=== PATIENT | male | born 1940 | race Caucasian/White ===

== ENCOUNTER 2021-04-19 15:36 | Inpatient (IN) | payer MEDICARE ==
[2021-04-19] MEDS ORDERED: Bisacodyl 5 MG TAB PO PRN (16:48)
[2021-04-19] MEDS ORDERED: Ondansetron ODT 4 MG TAB PO PRN (16:48)
[2021-04-19] MEDS ORDERED: Ondansetron PF 4 MG/2 ML Vial IVP PRN (16:48)
[2021-04-19 20:05] VITALS: BMI 29.7
[2021-04-19] MEDS: Famotidine/PF 20 mg/2ml Vial SLOW IVP SCH (20:19)
[2021-04-20 04:47] LABS: #Eosinphils 0.3 10x3/uL (0.0-0.5); #Monocytes 0.6 10x3/uL (0.0-1.1); #Neutrophils 5.9 10x3/uL (1.5-8.4); %Basophils 0.5 % (0.0-2.0); %Eosinophils 3.2 % (0.0-6.0); %Lymphocytes 14.9 % (18.0-47.0); %Monocytes 7.6 % (0.0-10.0); %Neutrophils 73.4 % (40.0-75.0); Hemoglobin 11.4 g/dL (13.5-17.5); Mean Corpuscular Hemoglobin 29.2 pg (27.0-33.0); Mean Corpuscular Volume 91.3 fl (81.2-95.1); Mean Platelet Volume 9.3 fl (7.4-10.4); Platelet Count 186 10x3/uL (150-450); RBC Distribution Width 13.1 % (11.5-14.5); White Blood Cell (WBC) Count 8.1 10x3/uL (3.5-10.5)
[2021-04-20 04:52] LABS: Anion Gap 12 mmol/L (10-20); BUN (Urea Nitrogen) 33 mg/dL (8.4-25.7); Calc. Creatinine Clearance 50 mL/min (70-130); Calcium 8.4 mg/dL (7.8-10.44); Carbon Dioxide 15 mmol/L (23-31); Chloride 116 mmol/L (98-107); Glucose 100 mg/dL (83-110); Sodium 139 mmol/L (136-145)
[2021-04-20] MEDS: Enoxaparin Sodium 30 MG/0.3 ML SYRINGE SC SCH (09:29)
[2021-04-20] MEDS: cefTRIAXone\\ROCEPHIN 2 GM in Sodium Chloride 0.9% 100 ML IVPB SCH (14:12)
[2021-04-20] MEDS ORDERED: Aspirin 325 MG TAB PO SCH (14:30)
[2021-04-20 18:22] LABS: Prothrombin Time 11.5 sec (9.5-12.1)
[2021-04-20] MEDS ORDERED: Warfarin Sodium 5 MG TAB PO SCH (18:45)
[2021-04-20 18:54] LABS: INR-International Normal Ratio 1.1; PTT 30.8 sec (22.0-33.0); Prothrombin Time 11.7 sec (9.5-12.1)
[2021-04-20] MEDS: Famotidine/PF 20 mg/2ml Vial SLOW IVP SCH (19:26)
[2021-04-21 06:37] LABS: #Eosinphils 0.3 10x3/uL (0.0-0.5); #Monocytes 0.5 10x3/uL (0.0-1.1); #Neutrophils 4.7 10x3/uL (1.5-8.4); %Basophils 0.3 % (0.0-2.0); %Eosinophils 4.4 % (0.0-6.0); %Lymphocytes 15.3 % (18.0-47.0); %Monocytes 7.6 % (0.0-10.0); %Neutrophils 71.9 % (40.0-75.0); Hemoglobin 11.6 g/dL (13.5-17.5); Mean Corpuscular HGB CONC 31.2 g/dL (32.0-36.0); Mean Corpuscular Hemoglobin 28.6 pg (27.0-33.0); Mean Corpuscular Volume 91.9 fl (81.2-95.1); Platelet Count 193 10x3/uL (150-450); RBC Distribution Width 13.2 % (11.5-14.5); Red Blood Cell (RBC) Count 4.05 10x6/uL (4.32-5.72); White Blood Cell (WBC) Count 6.6 10x3/uL (3.5-10.5)
[2021-04-21 06:48] LABS: Prothrombin Time 11.4 sec (9.5-12.1)
[2021-04-21 06:51] LABS: Anion Gap 12 mmol/L (10-20); BUN (Urea Nitrogen) 26 mg/dL (8.4-25.7); Calc. Creatinine Clearance 50 mL/min (70-130); Calcium 8.7 mg/dL (7.8-10.44); Carbon Dioxide 19 mmol/L (23-31); Chloride 113 mmol/L (98-107); Glucose 95 mg/dL (83-110); Potassium 3.8 mmol/L (3.5-5.1); Sodium 140 mmol/L (136-145)
[2021-04-21] MEDS ORDERED: Aspirin 325 MG TAB PO SCH (09:00)
[2021-04-21] MEDS: Enoxaparin Sodium 30 MG/0.3 ML SYRINGE SC SCH (09:12)
[2021-04-21 11:09] VITALS: BP 146/83; TEMP 98.5
[2021-04-21] MEDS ORDERED: Sodium Chloride 0.9% 100 ML ONE (12:03)
[2021-04-21] MEDS: cefTRIAXone\\ROCEPHIN 2 GM in Sodium Chloride 0.9% 100 ML IVPB SCH (12:19)
[2021-04-21] MEDS ORDERED: Warfarin Sodium 5 MG TAB PO SCH (17:00)
== END 2021-04-21 14:17 | disposition home health service (06) | DRG 699 ==
LOC: CSHERS 15:36 → CSHTELE 16:47 → OBSVTOIN 16:48 → UNDOADMOB 19:31 → CSHTELE 19:31
PROVIDERS: ADMIT Family Medicine; ATTEND Hospitalist
PROC: 0T2BX0Z Change Drainage Device in Bladder, External Approach (ICD-10-PCS; principal; 2021-04-19)
DX: T83.511A Infection and inflammatory reaction due to indwelling urethral catheter, initial encounter (principal); N30.01 Acute cystitis with hematuria; N18.30 Chronic kidney disease, stage 3 unspecified; I48.0 Paroxysmal atrial fibrillation; I12.9 Hypertensive chronic kidney disease with stage 1 through stage 4 chronic kidney disease, or unspecified chronic kidney disease; Y84.6 Urinary catheterization as the cause of abnormal reaction of the patient, or of later complication, without mention of misadventure at the time of the procedure; D49.4 Neoplasm of unspecified behavior of bladder; Z88.2 Allergy status to sulfonamides; Z88.8 Allergy status to other drugs, medicaments and biological substances; Z88.5 Allergy status to narcotic agent; Z98.890 Other specified postprocedural states; Z87.891 Personal history of nicotine dependence; Z86.718 Personal history of other venous thrombosis and embolism; Z86.711 Personal history of pulmonary embolism; Z79.82 Long term (current) use of aspirin
CPT/HCPCS: 36415; 74176; 80048; 83605; 85025; 85610; 85730; 93005; 93010; J0696; J1650; J3490; S0028

== ENCOUNTER 2021-05-20 15:17 | Inpatient (IN) | payer MEDICARE ==
[2021-05-20] MEDS ORDERED: Ketorolac Tromethamine 30 MG/ML VIAL ONE (15:35)
[2021-05-20] MEDS ORDERED: HYDROmorphone 0.5 MG/0.5 ML SYRINGE ONE (16:25)
[2021-05-20 16:44] LABS: #Monocytes 0.3 10x3/uL (0.0-1.1); %Basophils 0.4 % (0.0-2.0); %Eosinophils 0.2 % (0.0-6.0); %Monocytes 5.1 % (0.0-10.0); %Neutrophils 88.1 % (40.0-75.0); Mean Corpuscular HGB CONC 30.8 g/dL (32.0-36.0); Mean Platelet Volume 8.7 fl (7.4-10.4); Platelet Count 182 10x3/uL (150-450); Red Blood Cell (RBC) Count 4.49 10x6/uL (4.32-5.72); White Blood Cell (WBC) Count 5.7 10x3/uL (3.5-10.5)
[2021-05-20 17:05] LABS: ALT (SGPT) 10 U/L (8-55); AST (SGOT) 14 U/L (5-34); Albumin 3.3 g/dL (3.4-4.8); Alkaline Phosphatase 94 U/L (40-110); Anion Gap 15 mmol/L (10-20); BUN (Urea Nitrogen) 31 mg/dL (8.4-25.7); Bilirubin, Total 0.6 mg/dL (0.2-1.2); Calc. Creatinine Clearance 0 mL/min (70-130); Calcium 8.6 mg/dL (7.8-10.44); Carbon Dioxide 14 mmol/L (23-31); Chloride 109 mmol/L (98-107); Glucose 95 mg/dL (83-110); Lipase 19 U/L (8-78); Potassium 4.2 mmol/L (3.5-5.1); Protein, Total 7.3 g/dL (5.8-8.1); Sodium 134 mmol/L (136-145)
[2021-05-20] MEDS ORDERED: Ondansetron PF 4 MG/2 ML Vial ONE ×2 (17:50→20:21)
[2021-05-20] MEDS ORDERED: cefTRIAXone\\ROCEPHIN 1 GM VIAL ONE (18:06)
[2021-05-20 18:47] LABS: Bilirubin Neg (Negative); Blood, Urine 250 (Negative); Clarity Cloudy (Clear); Glucose, Urine (Dipstick) Normal (Negative); Ketone, Urine Negative (Negative); Leukocyte 500 (Negative); Nitrite Negative (Negative); Protein, Urine (Dipstick) 100 mg/dl (Neg-Trace); Urobilinogen Normal mg/dL (Less than 2)
[2021-05-20 18:50] LABS: Bacteria/HPF 1+ HPF (None Seen); WBC/HPF Greater than 50 HPF (0-3)
[2021-05-20] MEDS ORDERED: PROPOFOL 20 ML ONE (19:05)
[2021-05-20] MEDS ORDERED: Succinylcholine 200 MG/10 ml SYRINGE FS ONE (19:05)
[2021-05-20] MEDS ORDERED: Lidocaine 2% PF 5 ML VIAL ONE (19:05)
[2021-05-20] MEDS ORDERED: Iopamidol 15 ML ONE (19:06)
[2021-05-20] MEDS ORDERED: Fentanyl 100 MCG/2 ML VIAL ONE (19:07)
[2021-05-20 19:19] LABS: Lactic Acid 1.4 mmol/L (0.5-2.2)
[2021-05-20] MEDS ORDERED: Ondansetron ODT 4 MG TAB PO PRN (19:40)
[2021-05-20 19:48] LABS: INR-International Normal Ratio 2.6; PTT 40.9 sec (22.0-33.0); Prothrombin Time 27.4 sec (9.5-12.1)
[2021-05-20] MEDS ORDERED: PHENYLEPHRINE-NS 100 MCG/ML 10 ML SYRINGE ONE ×2 (19:51→20:18)
[2021-05-20 19:57] LABS: SARS-CoV-2 NAA Rapid Test Not Detected (NotDetected)
[2021-05-20 20:10] LABS: Magnesium 1.6 mg/dL (1.6-2.6)
[2021-05-20] MEDS ORDERED: Glycopyrrolate 0.2 MG/ML 5 ML SYRINGE ONE (20:19)
[2021-05-20 21:59] VITALS: BMI 26.4
[2021-05-20] MEDS ORDERED: Vancomycin HCl 1 GM in Sodium Chloride 0.9% 250 ML 250 ML IVPB SCH (22:15)
[2021-05-20] MEDS: Sodium Chloride 0.9% 1,000 ML IV SCH (23:10)
[2021-05-20] MEDS: Trospium 20 MG TAB PO SCH (23:10)
[2021-05-20] MEDS: Docusate 100 MG CAP PO SCH (23:10)
[2021-05-21 05:39] LABS: #Monocytes 0.4 10x3/uL (0.0-1.1); #Neutrophils 8.7 10x3/uL (1.5-8.4); %Basophils 0.3 % (0.0-2.0); %Eosinophils 0.1 % (0.0-6.0); %Lymphocytes 8.7 % (18.0-47.0); %Monocytes 3.9 % (0.0-10.0); %Neutrophils 86.7 % (40.0-75.0); Hemoglobin 10.6 g/dL (13.5-17.5); Mean Corpuscular Hemoglobin 29.1 pg (27.0-33.0); Mean Corpuscular Volume 90.9 fl (81.2-95.1); Platelet Count 187 10x3/uL (150-450); RBC Distribution Width 13.2 % (11.5-14.5); Red Blood Cell (RBC) Count 3.64 10x6/uL (4.32-5.72)
[2021-05-21 05:51] LABS: Anion Gap 13 mmol/L (10-20); BUN (Urea Nitrogen) 34 mg/dL (8.4-25.7); Calc. Creatinine Clearance 31 mL/min (70-130); Carbon Dioxide 16 mmol/L (23-31); Chloride 112 mmol/L (98-107); Glucose 81 mg/dL (83-110); Potassium 4.3 mmol/L (3.5-5.1); Sodium 137 mmol/L (136-145)
[2021-05-21 05:56] LABS: INR-International Normal Ratio 3.2; PTT 45.5 sec (22.0-33.0); Prothrombin Time 33.3 sec (9.5-12.1)
[2021-05-21] MEDS ORDERED: cefTRIAXone\\ROCEPHIN 2 GM in Sodium Chloride 0.9% 100 ML IVPB SCH (08:00)
[2021-05-21] MEDS: Trospium 20 MG TAB PO SCH ×2 (09:28→21:16)
[2021-05-21] MEDS: Docusate 100 MG CAP PO SCH ×2 (09:28→21:16)
[2021-05-21] MEDS ORDERED: Acetaminophen 325 MG TAB PO PRN (11:31)
[2021-05-21] MEDS ORDERED: HYDROmorphone 2 MG TAB PO PRN (11:45)
[2021-05-21] MEDS: Sodium Chloride 0.9% 1,000 ML IV SCH ×3 (14:40→21:31)
[2021-05-21] MEDS ORDERED: Vancomycin 1.5 GRAM/300 ML BAG 1.5 GM in Premix Bag 1 BAG IVPB SCH (21:00)
[2021-05-21] MEDS ORDERED: Vancomycin 1 GM in Premix Bag 1 BAG IVPB SCH (21:00)
[2021-05-21 23:33] LABS: Vancomycin, Random 11.3 ug/mL (See Comment)
[2021-05-21] MEDS ORDERED: Vancomycin HCl 750 MG in Sodium Chloride 0.9% 250 ML 250 ML IVPB SCH (23:59)
[2021-05-22] MEDS: Cefepime 2 GM in Sodium Chloride 0.9% 100 ML IVPB SCH ×3 (00:02→23:18)
[2021-05-22] MEDS: HYDROcodone/Acetaminophen 5/325 mg Tablet PO PRN ×2 (02:19→09:33)
[2021-05-22 05:05] LABS: #Eosinphils 0.2 10x3/uL (0.0-0.5); #Monocytes 0.4 10x3/uL (0.0-1.1); #Neutrophils 9.5 10x3/uL (1.5-8.4); %Basophils 0.3 % (0.0-2.0); %Eosinophils 1.5 % (0.0-6.0); %Lymphocytes 8.3 % (18.0-47.0); %Monocytes 3.8 % (0.0-10.0); %Neutrophils 85.3 % (40.0-75.0); Hemoglobin 10.7 g/dL (13.5-17.5); Mean Corpuscular HGB CONC 32.2 g/dL (32.0-36.0); Mean Corpuscular Hemoglobin 28.8 pg (27.0-33.0); Mean Corpuscular Volume 89.2 fl (81.2-95.1); Mean Platelet Volume 8.8 fl (7.4-10.4); Platelet Count 159 10x3/uL (150-450); RBC Distribution Width 13.2 % (11.5-14.5); Red Blood Cell (RBC) Count 3.72 10x6/uL (4.32-5.72); White Blood Cell (WBC) Count 11.2 10x3/uL (3.5-10.5)
[2021-05-22] MEDS: Sodium Chloride 0.9% 1,000 ML IV SCH ×2 (05:21→18:35)
[2021-05-22 05:29] LABS: ALT (SGPT) 8 U/L (8-55); AST (SGOT) 16 U/L (5-34); Albumin 2.7 g/dL (3.4-4.8); Alkaline Phosphatase 69 U/L (40-110); Anion Gap 11 mmol/L (10-20); BUN (Urea Nitrogen) 30 mg/dL (8.4-25.7); Bilirubin, Total 0.5 mg/dL (0.2-1.2); Calc. Creatinine Clearance 40 mL/min (70-130); Calcium 8.2 mg/dL (7.8-10.44); Carbon Dioxide 19 mmol/L (23-31); Chloride 110 mmol/L (98-107); Globulin 3.4 g/dL (2.4-3.5); Glucose 98 mg/dL (83-110); INR-International Normal Ratio 3.1; Magnesium 1.7 mg/dL (1.6-2.6); Phosphorus 2.5 mg/dL (2.3-4.7); Protein, Total 6.1 g/dL (5.8-8.1); Prothrombin Time 32.4 sec (9.5-12.1); Sodium 136 mmol/L (136-145)
[2021-05-22] MEDS: Ondansetron PF 4 MG/2 ML Vial IVP PRN ×2 (07:13→22:19)
[2021-05-22] MEDS ORDERED: Diltiazem 125 MG in Sodium Chloride 0.9% 100 ML IVPB SCH (08:30)
[2021-05-22] MEDS ORDERED: FLU VACC QS2021-22(65YR UP)/PF 240 MCG/0.7 ML SYRINGE IM ONE (09:00)
[2021-05-22] MEDS ORDERED: Phytonadione 10 MG, Admixture Fee 1 EACH in Sodium Chloride 0.9% 50 ML IVPB SCH (09:30)
[2021-05-22] MEDS: Trospium 20 MG TAB PO SCH ×2 (09:33→20:52)
[2021-05-22] MEDS: Docusate 100 MG CAP PO SCH ×2 (09:33→20:47)
[2021-05-22] MEDS: Pantoprazole 40 MG VIAL IVP SCH ×2 (09:33→20:47)
[2021-05-22 09:43] LABS: Hemoglobin 11.6 g/dL (13.5-17.5)
[2021-05-22 21:00] LABS: INR-International Normal Ratio 1.4; PTT 35.8 sec (22.0-33.0); Prothrombin Time 15.1 sec (9.5-12.1)
[2021-05-22] MEDS ORDERED: Vancomycin HCl 1 GM in Sodium Chloride 0.9% 250 ML 250 ML IVPB SCH (23:00)
[2021-05-23 04:21] LABS: #Eosinphils 0.3 10x3/uL (0.0-0.5); #Monocytes 0.5 10x3/uL (0.0-1.1); #Neutrophils 8.3 10x3/uL (1.5-8.4); %Basophils 0.3 % (0.0-2.0); %Lymphocytes 8.5 % (18.0-47.0); %Monocytes 4.8 % (0.0-10.0); %Neutrophils 82.7 % (40.0-75.0); Hemoglobin 10.5 g/dL (13.5-17.5); Mean Corpuscular HGB CONC 31.3 g/dL (32.0-36.0); Mean Corpuscular Hemoglobin 28.6 pg (27.0-33.0); Mean Corpuscular Volume 91.3 fl (81.2-95.1); Mean Platelet Volume 9.4 fl (7.4-10.4); Platelet Count 193 10x3/uL (150-450); RBC Distribution Width 13.2 % (11.5-14.5); Red Blood Cell (RBC) Count 3.67 10x6/uL (4.32-5.72)
[2021-05-23 04:38] LABS: ALT (SGPT) 10 U/L (8-55); AST (SGOT) 16 U/L (5-34); Albumin 2.7 g/dL (3.4-4.8); Alkaline Phosphatase 73 U/L (40-110); Anion Gap 12 mmol/L (10-20); BUN (Urea Nitrogen) 33 mg/dL (8.4-25.7); Bilirubin, Total 0.7 mg/dL (0.2-1.2); Calc. Creatinine Clearance 44 mL/min (70-130); Calcium 8.6 mg/dL (7.8-10.44); Carbon Dioxide 19 mmol/L (23-31); Cardiac Risk 4.3 (Less than 4.5); Chloride 112 mmol/L (98-107); Cholesterol 77 mg/dl (< 200 Desired); Globulin 3.6 g/dL (2.4-3.5); Glucose 101 mg/dL (83-110); HDL Cholesterol 18 mg/dL (>60 Neg Risk); LDL Cholesterol, Calculated 41 mg/dL; Magnesium 1.9 mg/dL (1.6-2.6); Phosphorus 2.7 mg/dL (2.3-4.7); Potassium 4.2 mmol/L (3.5-5.1); Protein, Total 6.3 g/dL (5.8-8.1); Sodium 139 mmol/L (136-145); Triglycerides 89 mg/dL (Less than 150)
[2021-05-23 04:42] LABS: INR-International Normal Ratio 1.2; PTT 33.6 sec (22.0-33.0); Prothrombin Time 13.4 sec (9.5-12.1)
[2021-05-23] MEDS: Sodium Chloride 0.9% 1,000 ML IV SCH ×3 (06:30→15:39)
[2021-05-23] MEDS: Docusate 100 MG CAP PO SCH ×2 (09:04→20:44)
[2021-05-23] MEDS: Trospium 20 MG TAB PO SCH ×2 (09:04→20:44)
[2021-05-23] MEDS: Pantoprazole 40 MG VIAL IVP SCH ×2 (09:05→20:44)
[2021-05-23 11:36] LABS: Hemoglobin A1c 4.9 % (4.0-6.0)
[2021-05-23] MEDS: Cefepime 2 GM in Sodium Chloride 0.9% 100 ML IVPB SCH (15:39)
[2021-05-23 22:08] LABS: Vancomycin, Trough 10.4 ug/mL
[2021-05-23] MEDS: VANCOMYCIN 1.25 GM/250 ML BAG 1.25 GM in Premix Bag 1 BAG IVPB SCH (23:08)
[2021-05-24] MEDS: Cefepime 2 GM in Sodium Chloride 0.9% 100 ML IVPB SCH (00:54)
[2021-05-24] MEDS: Sodium Chloride 0.9% 1,000 ML IV SCH ×4 (00:54→20:28)
[2021-05-24 05:21] LABS: #Eosinphils 0.5 10x3/uL (0.0-0.5); #Monocytes 0.6 10x3/uL (0.0-1.1); #Neutrophils 7.2 10x3/uL (1.5-8.4); %Basophils 0.4 % (0.0-2.0); %Eosinophils 4.8 % (0.0-6.0); %Lymphocytes 11.3 % (18.0-47.0); %Monocytes 6.7 % (0.0-10.0); %Neutrophils 76.1 % (40.0-75.0); Mean Corpuscular HGB CONC 32.1 g/dL (32.0-36.0); Mean Corpuscular Hemoglobin 28.8 pg (27.0-33.0); Mean Corpuscular Volume 89.8 fl (81.2-95.1); Mean Platelet Volume 9.2 fl (7.4-10.4); Platelet Count 205 10x3/uL (150-450); RBC Distribution Width 13.2 % (11.5-14.5); Red Blood Cell (RBC) Count 3.82 10x6/uL (4.32-5.72); White Blood Cell (WBC) Count 9.4 10x3/uL (3.5-10.5)
[2021-05-24 05:26] LABS: ALT (SGPT) 10 U/L (8-55); AST (SGOT) 15 U/L (5-34); Albumin 2.6 g/dL (3.4-4.8); Alkaline Phosphatase 66 U/L (40-110); Anion Gap 11 mmol/L (10-20); BUN (Urea Nitrogen) 33 mg/dL (8.4-25.7); Bilirubin, Total 0.6 mg/dL (0.2-1.2); Calc. Creatinine Clearance 50 mL/min (70-130); Calcium 8.3 mg/dL (7.8-10.44); Carbon Dioxide 18 mmol/L (23-31); Chloride 116 mmol/L (98-107); Globulin 3.3 g/dL (2.4-3.5); Glucose 93 mg/dL (83-110); Magnesium 1.8 mg/dL (1.6-2.6); Phosphorus 2.3 mg/dL (2.3-4.7); Potassium 3.7 mmol/L (3.5-5.1); Protein, Total 5.9 g/dL (5.8-8.1); Sodium 141 mmol/L (136-145)
[2021-05-24 05:32] LABS: INR-International Normal Ratio 1.1; PTT 30.5 sec (22.0-33.0)
[2021-05-24] MEDS: Docusate 100 MG CAP PO SCH ×2 (08:34→20:14)
[2021-05-24] MEDS: Pantoprazole 40 MG VIAL IVP SCH ×2 (08:34→20:23)
[2021-05-24] MEDS: Trospium 20 MG TAB PO SCH ×2 (09:54→20:23)
[2021-05-24] MEDS: Cefepime 1 GM in Sodium Chloride 0.9% 100 ML IVPB SCH (13:03)
[2021-05-24] MEDS: VANCOMYCIN 1.25 GM/250 ML BAG 1.25 GM in Premix Bag 1 BAG IVPB SCH (23:15)
[2021-05-25] MEDS: Cefepime 1 GM in Sodium Chloride 0.9% 100 ML IVPB SCH ×2 (00:56→11:39)
[2021-05-25 05:37] LABS: INR-International Normal Ratio 1.1; PTT 28.8 sec (22.0-33.0); Prothrombin Time 11.9 sec (9.5-12.1)
[2021-05-25 05:40] LABS: ALT (SGPT) 12 U/L (8-55); AST (SGOT) 15 U/L (5-34); Albumin 2.6 g/dL (3.4-4.8); Alkaline Phosphatase 74 U/L (40-110); Anion Gap 12 mmol/L (10-20); BUN (Urea Nitrogen) 30 mg/dL (8.4-25.7); Bilirubin, Total 0.7 mg/dL (0.2-1.2); Calc. Creatinine Clearance 54 mL/min (70-130); Calcium 8.3 mg/dL (7.8-10.44); Carbon Dioxide 18 mmol/L (23-31); Chloride 113 mmol/L (98-107); Globulin 3.5 g/dL (2.4-3.5); Glucose 76 mg/dL (83-110); Magnesium 1.9 mg/dL (1.6-2.6); Phosphorus 2.2 mg/dL (2.3-4.7); Potassium 3.5 mmol/L (3.5-5.1); Protein, Total 6.1 g/dL (5.8-8.1); Sodium 139 mmol/L (136-145)
[2021-05-25 05:47] LABS: #Eosinphils 0.5 10x3/uL (0.0-0.5); #Monocytes 0.7 10x3/uL (0.0-1.1); #Neutrophils 5.9 10x3/uL (1.5-8.4); %Basophils 0.5 % (0.0-2.0); %Eosinophils 6.1 % (0.0-6.0); %Lymphocytes 14.7 % (18.0-47.0); %Monocytes 8.2 % (0.0-10.0); %Neutrophils 69.9 % (40.0-75.0); Hemoglobin 10.6 g/dL (13.5-17.5); Mean Corpuscular HGB CONC 31.4 g/dL (32.0-36.0); Mean Corpuscular Hemoglobin 28.7 pg (27.0-33.0); Mean Corpuscular Volume 91.6 fl (81.2-95.1); Mean Platelet Volume 9.3 fl (7.4-10.4); Platelet Count 197 10x3/uL (150-450); Red Blood Cell (RBC) Count 3.69 10x6/uL (4.32-5.72); White Blood Cell (WBC) Count 8.4 10x3/uL (3.5-10.5)
[2021-05-25] MEDS ORDERED: Docusate 100 MG CAP ONE (07:01)
[2021-05-25] MEDS: Sodium Chloride 0.9% 1,000 ML IV SCH ×2 (07:13→11:46)
[2021-05-25] MEDS: Pantoprazole 40 MG VIAL IVP SCH ×2 (07:14→21:19)
[2021-05-25] MEDS: Docusate 100 MG CAP PO SCH ×2 (07:17→21:09)
[2021-05-25] MEDS: Trospium 20 MG TAB PO SCH ×2 (07:19→21:18)
[2021-05-25] MEDS ORDERED: Polyvinyl Alcohol 1.4%/Povidone 0.6% Opth Drops EA EYE SCH (11:00)
[2021-05-25] MEDS ORDERED: PROPOFOL 20 ML ONE (13:12)
[2021-05-25] MEDS: Metoclopramide 10 MG/10 ML UDCUP PO SCH ×2 (15:10→21:18)
[2021-05-25] MEDS ORDERED: Warfarin Sodium 5 MG TAB PO SCH (19:00)
[2021-05-25] MEDS: Polyvinyl Alcohol 1.4%/Povidone 0.6% Opth Drops EA EYE SCH (21:19)
[2021-05-25 22:48] LABS: Vancomycin, Trough 18.1 ug/mL
[2021-05-25] MEDS: VANCOMYCIN 1.25 GM/250 ML BAG 1.25 GM in Premix Bag 1 BAG IVPB SCH (23:04)
[2021-05-26] MEDS: Cefepime 1 GM in Sodium Chloride 0.9% 100 ML IVPB SCH ×2 (01:00→11:51)
[2021-05-26 05:53] LABS: INR-International Normal Ratio 1.1; Prothrombin Time 12.6 sec (9.5-12.1)
[2021-05-26 05:57] LABS: #Eosinphils 0.4 10x3/uL (0.0-0.5); #Monocytes 0.6 10x3/uL (0.0-1.1); #Neutrophils 6.4 10x3/uL (1.5-8.4); %Basophils 0.3 % (0.0-2.0); %Eosinophils 4.2 % (0.0-6.0); %Monocytes 7.3 % (0.0-10.0); %Neutrophils 73.3 % (40.0-75.0); Hemoglobin 11.3 g/dL (13.5-17.5); Mean Corpuscular HGB CONC 32.1 g/dL (32.0-36.0); Mean Corpuscular Hemoglobin 29.1 pg (27.0-33.0); Mean Corpuscular Volume 90.7 fl (81.2-95.1); Mean Platelet Volume 9.3 fl (7.4-10.4); Platelet Count 195 10x3/uL (150-450); RBC Distribution Width 13.1 % (11.5-14.5); Red Blood Cell (RBC) Count 3.88 10x6/uL (4.32-5.72); White Blood Cell (WBC) Count 8.7 10x3/uL (3.5-10.5)
[2021-05-26 06:03] LABS: ALT (SGPT) 12 U/L (8-55); AST (SGOT) 16 U/L (5-34); Albumin 2.7 g/dL (3.4-4.8); Alkaline Phosphatase 82 U/L (40-110); Anion Gap 11 mmol/L (10-20); BUN (Urea Nitrogen) 25 mg/dL (8.4-25.7); Bilirubin, Total 0.6 mg/dL (0.2-1.2); Calc. Creatinine Clearance 54 mL/min (70-130); Calcium 8.4 mg/dL (7.8-10.44); Carbon Dioxide 20 mmol/L (23-31); Cardiac Risk 5.3 (Less than 4.5); Chloride 111 mmol/L (98-107); Cholesterol 85 mg/dl (< 200 Desired); Globulin 3.6 g/dL (2.4-3.5); Glucose 80 mg/dL (83-110); HDL Cholesterol 16 mg/dL (>60 Neg Risk); LDL Cholesterol, Calculated 51 mg/dL; Magnesium 1.8 mg/dL (1.6-2.6); Phosphorus 2.4 mg/dL (2.3-4.7); Potassium 3.4 mmol/L (3.5-5.1); Protein, Total 6.3 g/dL (5.8-8.1); Sodium 139 mmol/L (136-145); Triglycerides 90 mg/dL (Less than 150)
[2021-05-26] MEDS: Trospium 20 MG TAB PO SCH ×2 (07:09→20:04)
[2021-05-26] MEDS: Docusate 100 MG CAP PO SCH ×2 (07:09→20:04)
[2021-05-26] MEDS: Pantoprazole 40 MG VIAL IVP SCH ×2 (07:09→20:05)
[2021-05-26] MEDS: Polyvinyl Alcohol 1.4%/Povidone 0.6% Opth Drops EA EYE SCH ×2 (07:10→20:04)
[2021-05-26] MEDS ORDERED: Warfarin Sodium 2.5 MG TAB PO SCH ×2 (17:00→21:00)
[2021-05-26] MEDS: Amino Acids 4.25 %/Dextrose 5% 2,000 ML IV SCH (18:29)
[2021-05-27 05:42] LABS: ALT (SGPT) 12 U/L (8-55); AST (SGOT) 14 U/L (5-34); Albumin 2.7 g/dL (3.4-4.8); Alkaline Phosphatase 77 U/L (40-110); Anion Gap 11 mmol/L (10-20); BUN (Urea Nitrogen) 22 mg/dL (8.4-25.7); Bilirubin, Total 0.5 mg/dL (0.2-1.2); Calc. Creatinine Clearance 61 mL/min (70-130); Calcium 8.2 mg/dL (7.8-10.44); Carbon Dioxide 17 mmol/L (23-31); Chloride 108 mmol/L (98-107); Globulin 3.5 g/dL (2.4-3.5); Glucose 106 mg/dL (83-110); Magnesium 1.8 mg/dL (1.6-2.6); Protein, Total 6.2 g/dL (5.8-8.1); Sodium 133 mmol/L (136-145)
[2021-05-27 05:45] LABS: INR-International Normal Ratio 1.3; PTT 32.2 sec (22.0-33.0); Potassium 2.8 mmol/L (3.5-5.1); Prothrombin Time 14.1 sec (9.5-12.1)
[2021-05-27 05:51] LABS: #Eosinphils 0.4 10x3/uL (0.0-0.5); #Monocytes 0.7 10x3/uL (0.0-1.1); #Neutrophils 6.3 10x3/uL (1.5-8.4); %Basophils 0.3 % (0.0-2.0); %Eosinophils 4.7 % (0.0-6.0); %Lymphocytes 13.5 % (18.0-47.0); %Monocytes 7.8 % (0.0-10.0); %Neutrophils 72.1 % (40.0-75.0); Hemoglobin 11.2 g/dL (13.5-17.5); Mean Corpuscular HGB CONC 32.6 g/dL (32.0-36.0); Mean Corpuscular Hemoglobin 29.2 pg (27.0-33.0); Mean Corpuscular Volume 89.6 fl (81.2-95.1); Platelet Count 190 10x3/uL (150-450); RBC Distribution Width 13.1 % (11.5-14.5); Red Blood Cell (RBC) Count 3.84 10x6/uL (4.32-5.72); White Blood Cell (WBC) Count 8.7 10x3/uL (3.5-10.5)
[2021-05-27] MEDS ORDERED: Potassium Chloride 20 MEQ TAB PO SCH (08:00)
[2021-05-27] MEDS ORDERED: Amino Acids 4.25 %/Dextrose 5% 2,000 ML BAG IV SCH (09:00)
[2021-05-27] MEDS: Pantoprazole 40 MG VIAL IVP SCH ×2 (09:13→21:10)
[2021-05-27] MEDS: Docusate 100 MG CAP PO SCH ×2 (09:13→21:10)
[2021-05-27] MEDS: Polyvinyl Alcohol 1.4%/Povidone 0.6% Opth Drops EA EYE SCH ×2 (09:25→21:11)
[2021-05-27] MEDS: Trospium 20 MG TAB PO SCH ×2 (09:26→21:11)
[2021-05-27] MEDS ORDERED: Electrolyte Replacement Protocol 1 EACH FS SCH (11:00)
[2021-05-27] MEDS ORDERED: Potassium Chloride 40 MEQ in Premix Bag 1 BAG IVPB SCH (12:00)
[2021-05-27] MEDS ORDERED: Magnesium 2 GM/50 ML 2 GM in Premix Bag 1 BAG IVPB SCH (13:00)
[2021-05-27] MEDS: PHOS-NAK 1 PKT PACK PO SCH ×2 (14:11→18:37)
[2021-05-27] MEDS: Potassium Chloride 20 MEQ in Premix Bag 1 BAG IVPB SCH ×2 (14:59→17:21)
[2021-05-27] MEDS: Warfarin Sodium 5 MG TAB PO SCH (17:22)
[2021-05-27] MEDS: Amino Acids 4.25 %/Dextrose 5% 2,000 ML IV SCH (18:34)
[2021-05-27] MEDS ORDERED: PHOS-NAK 1 PKT PACK PO SCH (18:45)
[2021-05-28] MEDS: Ondansetron PF 4 MG/2 ML Vial IVP PRN (04:42)
[2021-05-28 05:21] LABS: #Eosinphils 0.4 10x3/uL (0.0-0.5); #Monocytes 0.6 10x3/uL (0.0-1.1); #Neutrophils 6.8 10x3/uL (1.5-8.4); %Basophils 0.3 % (0.0-2.0); %Eosinophils 4.6 % (0.0-6.0); %Lymphocytes 13.5 % (18.0-47.0); %Monocytes 6.9 % (0.0-10.0); %Neutrophils 73.5 % (40.0-75.0); Mean Corpuscular HGB CONC 32.9 g/dL (32.0-36.0); Mean Corpuscular Hemoglobin 29.2 pg (27.0-33.0); Mean Corpuscular Volume 88.6 fl (81.2-95.1); Mean Platelet Volume 8.5 fl (7.4-10.4); Platelet Count 162 10x3/uL (150-450); RBC Distribution Width 13.4 % (11.5-14.5); Red Blood Cell (RBC) Count 3.77 10x6/uL (4.32-5.72); White Blood Cell (WBC) Count 9.3 10x3/uL (3.5-10.5)
[2021-05-28 05:32] LABS: INR-International Normal Ratio 1.5; PTT 35.2 sec (22.0-33.0); Prothrombin Time 16.3 sec (9.5-12.1)
[2021-05-28 05:34] LABS: ALT (SGPT) 12 U/L (8-55); AST (SGOT) 11 U/L (5-34); Albumin 2.7 g/dL (3.4-4.8); Alkaline Phosphatase 77 U/L (40-110); Anion Gap 7 mmol/L (10-20); BUN (Urea Nitrogen) 22 mg/dL (8.4-25.7); Bilirubin, Total 0.4 mg/dL (0.2-1.2); Calc. Creatinine Clearance 63 mL/min (70-130); Carbon Dioxide 20 mmol/L (23-31); Chloride 108 mmol/L (98-107); Globulin 3.5 g/dL (2.4-3.5); Glucose 107 mg/dL (83-110); Protein, Total 6.2 g/dL (5.8-8.1); Sodium 132 mmol/L (136-145)
[2021-05-28 05:44] LABS: Phosphorus 1.8 mg/dL (2.3-4.7); Potassium 2.8 mmol/L (3.5-5.1)
[2021-05-28] MEDS ORDERED: Potassium Chloride 20 MEQ TAB PO SCH (06:00)
[2021-05-28] MEDS ORDERED: Magnesium 2 GM/50 ML 2 GM in Premix Bag 1 BAG IVPB SCH (06:00)
[2021-05-28] MEDS ORDERED: PHOS-NAK 1 PKT PACK PO SCH (06:00)
[2021-05-28] MEDS: Docusate 100 MG CAP PO SCH (07:42)
[2021-05-28] MEDS: Pantoprazole 40 MG VIAL IVP SCH ×2 (09:03→20:23)
[2021-05-28] MEDS ORDERED: Metoclopramide HCl 10 MG/2 ML VIAL IVP SCH (10:00)
[2021-05-28] MEDS ORDERED: Potassium Chloride 20 MEQ in Premix Bag 1 BAG IVPB SCH (10:00)
[2021-05-28] MEDS: Trospium 20 MG TAB PO SCH ×2 (10:01→20:36)
[2021-05-28] MEDS: Polyvinyl Alcohol 1.4%/Povidone 0.6% Opth Drops EA EYE SCH ×2 (10:01→20:28)
[2021-05-28] MEDS ORDERED: Potassium Phosphate 15 MMOL in Sodium Chloride 0.9% 250 ML 250 ML IVPB SCH (12:00)
[2021-05-28 12:34] LABS: Anion Gap 10 mmol/L (10-20); BUN (Urea Nitrogen) 24 mg/dL (8.4-25.7); Calc. Creatinine Clearance 61 mL/min (70-130); Calcium 8.1 mg/dL (7.8-10.44); Carbon Dioxide 17 mmol/L (23-31); Chloride 109 mmol/L (98-107); Glucose 83 mg/dL (83-110); Potassium 3.9 mmol/L (3.5-5.1); Sodium 132 mmol/L (136-145)
[2021-05-28 14:14] LABS: SARS-CoV-2 PCR by NAA Not Detected (NotDetected)
[2021-05-28] MEDS ORDERED: Baclofen 10 MG TAB PO SCH (18:00)
[2021-05-28] MEDS: Amino Acids 4.25 %/Dextrose 5% 2,000 ML IV SCH (18:03)
[2021-05-28] MEDS: Warfarin Sodium 5 MG TAB PO SCH (18:03)
[2021-05-28] MEDS: Metoclopramide HCl 10 MG/2 ML VIAL IVP SCH (20:21)
[2021-05-29 05:18] LABS: INR-International Normal Ratio 1.8; PTT 38.6 sec (22.0-33.0); Prothrombin Time 19.7 sec (9.5-12.1)
[2021-05-29 05:38] LABS: Phosphorus 2.2 mg/dL (2.3-4.7)
[2021-05-29] MEDS ORDERED: Magnesium 2 GM/50 ML 2 GM in Premix Bag 1 BAG IVPB SCH (06:15)
[2021-05-29] MEDS: Baclofen 10 MG TAB PO SCH ×3 (08:13→19:57)
[2021-05-29] MEDS: Pantoprazole 40 MG VIAL IVP SCH ×2 (08:13→19:58)
[2021-05-29] MEDS: Metoclopramide HCl 10 MG/2 ML VIAL IVP SCH ×2 (08:14→19:57)
[2021-05-29] MEDS: Polyvinyl Alcohol 1.4%/Povidone 0.6% Opth Drops EA EYE SCH ×2 (08:14→19:58)
[2021-05-29] MEDS: Trospium 20 MG TAB PO SCH ×2 (08:14→19:58)
[2021-05-29 12:06] LABS: ALT (SGPT) 15 U/L (8-55); AST (SGOT) 22 U/L (5-34); Albumin 2.7 g/dL (3.4-4.8); Alkaline Phosphatase 81 U/L (40-110); Anion Gap 11 mmol/L (10-20); BUN (Urea Nitrogen) 28 mg/dL (8.4-25.7); Bilirubin, Total 0.4 mg/dL (0.2-1.2); Calc. Creatinine Clearance 56 mL/min (70-130); Carbon Dioxide 18 mmol/L (23-31); Chloride 108 mmol/L (98-107); Globulin 3.6 g/dL (2.4-3.5); Glucose 98 mg/dL (83-110); Potassium 3.5 mmol/L (3.5-5.1); Protein, Total 6.3 g/dL (5.8-8.1); Sodium 133 mmol/L (136-145)
[2021-05-29] MEDS ORDERED: Potassium Chloride 20 MEQ TAB PO SCH (13:00)
[2021-05-29] MEDS: Warfarin Sodium 5 MG TAB PO SCH (17:32)
[2021-05-29] MEDS: Amino Acids 4.25 %/Dextrose 5% 2,000 ML IV SCH (18:19)
[2021-05-30] MEDS: Ondansetron PF 4 MG/2 ML Vial IVP PRN ×2 (03:30→21:43)
[2021-05-30 05:23] LABS: ALT (SGPT) 16 U/L (8-55); AST (SGOT) 20 U/L (5-34); Albumin 2.8 g/dL (3.4-4.8); Alkaline Phosphatase 88 U/L (40-110); Anion Gap 10 mmol/L (10-20); BUN (Urea Nitrogen) 26 mg/dL (8.4-25.7); Bilirubin, Total 0.3 mg/dL (0.2-1.2); Calc. Creatinine Clearance 58 mL/min (70-130); Calcium 8.2 mg/dL (7.8-10.44); Carbon Dioxide 20 mmol/L (23-31); Chloride 108 mmol/L (98-107); Globulin 3.7 g/dL (2.4-3.5); Glucose 115 mg/dL (83-110); Potassium 3.8 mmol/L (3.5-5.1); Protein, Total 6.5 g/dL (5.8-8.1); Sodium 134 mmol/L (136-145)
[2021-05-30 05:29] LABS: INR-International Normal Ratio 2.1; PTT 40.7 sec (22.0-33.0); Prothrombin Time 22.9 sec (9.5-12.1)
[2021-05-30] MEDS: Trospium 20 MG TAB PO SCH ×2 (08:56→20:00)
[2021-05-30] MEDS: Polyvinyl Alcohol 1.4%/Povidone 0.6% Opth Drops EA EYE SCH ×2 (08:56→20:02)
[2021-05-30] MEDS: Pantoprazole 40 MG VIAL IVP SCH ×2 (08:56→20:00)
[2021-05-30] MEDS: Metoclopramide HCl 10 MG/2 ML VIAL IVP SCH ×2 (08:56→20:01)
[2021-05-30] MEDS: Baclofen 10 MG TAB PO SCH ×3 (08:57→20:00)
[2021-05-30] MEDS ORDERED: Warfarin Sodium 2.5 MG TAB PO SCH (17:00)
[2021-05-31 04:53] LABS: #Eosinphils 0.3 10x3/uL (0.0-0.5); #Monocytes 0.8 10x3/uL (0.0-1.1); #Neutrophils 11.2 10x3/uL (1.5-8.4); %Basophils 0.3 % (0.0-2.0); %Eosinophils 1.9 % (0.0-6.0); %Lymphocytes 7.9 % (18.0-47.0); %Monocytes 6.1 % (0.0-10.0); %Neutrophils 83.1 % (40.0-75.0); Hemoglobin 11.1 g/dL (13.5-17.5); Mean Corpuscular Hemoglobin 28.8 pg (27.0-33.0); Mean Corpuscular Volume 89.9 fl (81.2-95.1); Mean Platelet Volume 9.1 fl (7.4-10.4); Platelet Count 291 10x3/uL (150-450); RBC Distribution Width 13.6 % (11.5-14.5); Red Blood Cell (RBC) Count 3.86 10x6/uL (4.32-5.72); White Blood Cell (WBC) Count 13.5 10x3/uL (3.5-10.5)
[2021-05-31 05:01] LABS: INR-International Normal Ratio 2.4; Prothrombin Time 25.1 sec (9.5-12.1)
[2021-05-31 05:08] LABS: ALT (SGPT) 23 U/L (8-55); AST (SGOT) 29 U/L (5-34); Albumin 2.9 g/dL (3.4-4.8); Alkaline Phosphatase 100 U/L (40-110); Anion Gap 12 mmol/L (10-20); BUN (Urea Nitrogen) 31 mg/dL (8.4-25.7); Bilirubin, Total 0.4 mg/dL (0.2-1.2); Calc. Creatinine Clearance 48 mL/min (70-130); Calcium 8.5 mg/dL (7.8-10.44); Carbon Dioxide 20 mmol/L (23-31); Chloride 106 mmol/L (98-107); Globulin 3.9 g/dL (2.4-3.5); Glucose 115 mg/dL (83-110); Protein, Total 6.8 g/dL (5.8-8.1); Sodium 134 mmol/L (136-145)
[2021-05-31 08:11] LABS: #Basophils 0.1 10x3/uL (0.0-0.2); #Eosinphils 0.3 10x3/uL (0.0-0.5); #Monocytes 0.9 10x3/uL (0.0-1.1); #Neutrophils 12.5 10x3/uL (1.5-8.4); %Basophils 0.3 % (0.0-2.0); %Eosinophils 1.8 % (0.0-6.0); %Lymphocytes 7.9 % (18.0-47.0); %Neutrophils 83.3 % (40.0-75.0); Hemoglobin 11.3 g/dL (13.5-17.5); Mean Corpuscular HGB CONC 32.3 g/dL (32.0-36.0); Mean Corpuscular Hemoglobin 28.8 pg (27.0-33.0); Mean Corpuscular Volume 89.1 fl (81.2-95.1); Mean Platelet Volume 8.9 fl (7.4-10.4); Platelet Count 280 10x3/uL (150-450); RBC Distribution Width 13.4 % (11.5-14.5); Red Blood Cell (RBC) Count 3.93 10x6/uL (4.32-5.72)
[2021-05-31] MEDS: Trospium 20 MG TAB PO SCH ×2 (10:42→22:54)
[2021-05-31] MEDS: Metoclopramide HCl 10 MG/2 ML VIAL IVP SCH ×3 (10:42→22:54)
[2021-05-31] MEDS: Pantoprazole 40 MG VIAL IVP SCH ×2 (10:43→22:52)
[2021-05-31] MEDS: Baclofen 10 MG TAB PO SCH ×3 (10:43→22:57)
[2021-05-31] MEDS: Polyvinyl Alcohol 1.4%/Povidone 0.6% Opth Drops EA EYE SCH ×2 (10:43→22:56)
[2021-05-31] MEDS: Dextrose 5%-Lactated Ringers 1,000 ML IV SCH ×2 (15:05→22:57)
[2021-05-31] MEDS: Warfarin Sodium 5 MG TAB PO SCH (17:12)
[2021-05-31] MEDS ORDERED: Piperacillin/Tazobactam 3.375 GM in Sodium Chloride 0.9% 100 ML IVPB SCH (17:30)
[2021-05-31] MEDS ORDERED: Diltiazem 125 MG in Sodium Chloride 0.9% 100 ML IVPB SCH (17:45)
[2021-05-31] MEDS: VANCOMYCIN 1.25 GM/250 ML BAG 1.25 GM in Premix Bag 1 BAG IVPB SCH (18:36)
[2021-05-31] MEDS ORDERED: Amino Acids 4.25 %/Dextrose 5% 1,000 ML IV SCH (20:00)
[2021-05-31] MEDS: Amino Acids 4.25 %/Dextrose 5% 1,000 ML IV SCH (22:51)
[2021-05-31] MEDS: Piperacillin/Tazobactam 3.375 GM in Sodium Chloride 0.9% 100 ML IVPB SCH (22:53)
[2021-05-31] MEDS: Ciprofloxacin 0.3 % Oint 3.5 GM TUBE EA EYE SCH (22:56)
[2021-05-31 23:15] LABS: #Basophils 0.1 10x3/uL (0.0-0.2); #Eosinphils 0.2 10x3/uL (0.0-0.5); #Neutrophils 10.1 10x3/uL (1.5-8.4); %Basophils 0.5 % (0.0-2.0); %Eosinophils 1.5 % (0.0-6.0); %Monocytes 7.9 % (0.0-10.0); %Neutrophils 80.3 % (40.0-75.0); Hemoglobin 11.4 g/dL (13.5-17.5); Mean Corpuscular Hemoglobin 28.9 pg (27.0-33.0); Mean Corpuscular Volume 90.4 fl (81.2-95.1); Mean Platelet Volume 8.8 fl (7.4-10.4); Platelet Count 318 10x3/uL (150-450); RBC Distribution Width 13.5 % (11.5-14.5); Red Blood Cell (RBC) Count 3.94 10x6/uL (4.32-5.72); White Blood Cell (WBC) Count 12.5 10x3/uL (3.5-10.5)
[2021-06-01] MEDS: Heparin 10,000 UNITS/ 10 ML VIAL SLOW IVP SCH ×2 (00:24→09:55)
[2021-06-01 01:08] LABS: Actual Bicarbonate (HCO3a) 18.6 mEq/L (22-28); Base Excess (BEa) -5.6 mEq/L (-2.0 to +3.0); CO2 Tension 32.1 mmHg (35.0-45.0); Calcium, Ionized (arterial) 1.25 mmol/L (1.12-1.30); Carboxyhemoglobin (COHb) 0.3 gm% (0.0-3.0); Hemoglobin (Hb) 11.1 g/dL (14.0-18.0); Potassium - ABG Lab 3.5 mmol/L (3.70-5.30); Puncture Site RRA; pH, Arterial 7.38 (7.35-7.45)
[2021-06-01 01:11] LABS: ALV-art Gradient 29.605 mmHg (0-20)
[2021-06-01] MEDS: Heparin 25,000 units/D5W 500 ML IVPB SCH (01:32)
[2021-06-01] MEDS: Metoclopramide HCl 10 MG/2 ML VIAL IVP SCH ×4 (03:43→23:54)
[2021-06-01 04:45] LABS: ALT (SGPT) 87 U/L (8-55); AST (SGOT) 117 U/L (5-34); Alkaline Phosphatase 136 U/L (40-110); Anion Gap 13 mmol/L (10-20); BUN (Urea Nitrogen) 46 mg/dL (8.4-25.7); Bilirubin, Total 0.4 mg/dL (0.2-1.2); Calc. Creatinine Clearance 36 mL/min (70-130); Calcium 8.9 mg/dL (7.8-10.44); Carbon Dioxide 18 mmol/L (23-31); Chloride 118 mmol/L (98-107); Globulin 3.9 g/dL (2.4-3.5); Glucose 168 mg/dL (83-110); Potassium 3.7 mmol/L (3.5-5.1); Protein, Total 6.9 g/dL (5.8-8.1); Sodium 145 mmol/L (136-145)
[2021-06-01] MEDS: Dextrose 5%-Lactated Ringers 1,000 ML IV SCH (05:13)
[2021-06-01] MEDS: Piperacillin/Tazobactam 3.375 GM in Sodium Chloride 0.9% 100 ML IVPB SCH ×3 (05:16→21:31)
[2021-06-01] MEDS ORDERED: Lactated Ringer's 500 ML IV SCH (07:45)
[2021-06-01] MEDS ORDERED: Amino Acids 4.25 %/Dextrose 5% 2,000 ML BAG IV SCH (09:00)
[2021-06-01] MEDS: Lactated Ringer's 1,000 ML IV SCH ×3 (09:24→20:14)
[2021-06-01] MEDS: Ciprofloxacin 0.3 % Oint 3.5 GM TUBE EA EYE SCH ×2 (09:42→21:32)
[2021-06-01] MEDS: Pantoprazole 40 MG VIAL IVP SCH ×2 (09:44→21:32)
[2021-06-01] MEDS: Polyvinyl Alcohol 1.4%/Povidone 0.6% Opth Drops EA EYE SCH ×2 (09:45→21:37)
[2021-06-01] MEDS: Trospium 20 MG TAB PO SCH ×2 (10:47→20:15)
[2021-06-01] MEDS: Baclofen 10 MG TAB PO SCH (12:36)
[2021-06-01 16:34] LABS: PTT Greater than 139.0 sec (22.0-33.0)
[2021-06-01] MEDS: VANCOMYCIN 1.25 GM/250 ML BAG 1.25 GM in Premix Bag 1 BAG IVPB SCH (17:27)
[2021-06-01] MEDS: Amino Acids 4.25 %/Dextrose 5% 1,000 ML IV SCH (17:32)
[2021-06-02 02:37] LABS: #Basophils 0.1 10x3/uL (0.0-0.2); #Eosinphils 0.4 10x3/uL (0.0-0.5); #Monocytes 0.7 10x3/uL (0.0-1.1); #Neutrophils 5.8 10x3/uL (1.5-8.4); %Basophils 0.8 % (0.0-2.0); %Eosinophils 4.7 % (0.0-6.0); %Lymphocytes 10.7 % (18.0-47.0); %Monocytes 8.6 % (0.0-10.0); %Neutrophils 74.3 % (40.0-75.0); Hemoglobin 9.6 g/dL (13.5-17.5); Mean Corpuscular HGB CONC 29.9 g/dL (32.0-36.0); Mean Corpuscular Hemoglobin 28.5 pg (27.0-33.0); Mean Corpuscular Volume 95.3 fl (81.2-95.1); Mean Platelet Volume 9.1 fl (7.4-10.4); Platelet Count 254 10x3/uL (150-450); RBC Distribution Width 14.1 % (11.5-14.5); Red Blood Cell (RBC) Count 3.37 10x6/uL (4.32-5.72); White Blood Cell (WBC) Count 7.8 10x3/uL (3.5-10.5)
[2021-06-02] MEDS: Metoclopramide HCl 10 MG/2 ML VIAL IVP SCH ×4 (03:01→21:38)
[2021-06-02] MEDS: Lactated Ringer's 1,000 ML IV SCH ×3 (03:01→16:25)
[2021-06-02 03:05] LABS: Platelet Morphology Comment Appears Adequate; RBC Morphology Normal
[2021-06-02 03:38] LABS: ALT (SGPT) 52 U/L (8-55); AST (SGOT) 41 U/L (5-34); Albumin 2.6 g/dL (3.4-4.8); Alkaline Phosphatase 103 U/L (40-110); Anion Gap 10 mmol/L (10-20); BUN (Urea Nitrogen) 36 mg/dL (8.4-25.7); Bilirubin, Total 0.2 mg/dL (0.2-1.2); Calc. Creatinine Clearance 45 mL/min (70-130); Calcium 8.5 mg/dL (7.8-10.44); Carbon Dioxide 20 mmol/L (23-31); Chloride 119 mmol/L (98-107); Globulin 3.4 g/dL (2.4-3.5); Glucose 111 mg/dL (83-110); Sodium 146 mmol/L (136-145)
[2021-06-02 04:38] LABS: PTT 84.2 sec (22.0-33.0)
[2021-06-02] MEDS: Heparin 25,000 units/D5W 500 ML IVPB SCH (04:52)
[2021-06-02] MEDS: Piperacillin/Tazobactam 3.375 GM in Sodium Chloride 0.9% 100 ML IVPB SCH ×3 (04:52→21:39)
[2021-06-02] MEDS: Potassium Chloride 20 MEQ in Premix Bag 1 BAG IVPB SCH ×2 (05:31→09:08)
[2021-06-02] MEDS ORDERED: Potassium Chloride 20 MEQ TAB PO SCH (08:00)
[2021-06-02] MEDS: Pantoprazole 40 MG VIAL IVP SCH ×2 (09:09→21:38)
[2021-06-02] MEDS: Ciprofloxacin 0.3 % Oint 3.5 GM TUBE EA EYE SCH ×2 (09:15→21:37)
[2021-06-02] MEDS: Polyvinyl Alcohol 1.4%/Povidone 0.6% Opth Drops EA EYE SCH ×2 (09:17→21:38)
[2021-06-02] MEDS: Trospium 20 MG TAB PO SCH ×2 (09:58→21:39)
[2021-06-02 11:42] LABS: Potassium 3.7 mmol/L (3.5-5.1)
[2021-06-02 11:52] LABS: PTT 95.6 sec (22.0-33.0)
[2021-06-02] MEDS: Amino Acids 4.25 %/Dextrose 5% 1,000 ML IV SCH (13:15)
[2021-06-03] MEDS: Lactated Ringer's 1,000 ML IV SCH ×3 (00:02→18:11)
[2021-06-03 03:47] LABS: #Eosinphils 0.3 10x3/uL (0.0-0.5); #Monocytes 0.5 10x3/uL (0.0-1.1); #Neutrophils 3.6 10x3/uL (1.5-8.4); %Basophils 0.5 % (0.0-2.0); %Eosinophils 4.9 % (0.0-6.0); %Lymphocytes 19.5 % (18.0-47.0); %Monocytes 8.2 % (0.0-10.0); %Neutrophils 66.4 % (40.0-75.0); Hemoglobin 8.9 g/dL (13.5-17.5); Mean Corpuscular HGB CONC 31.6 g/dL (32.0-36.0); Mean Corpuscular Hemoglobin 28.7 pg (27.0-33.0); Mean Platelet Volume 8.7 fl (7.4-10.4); Platelet Count 256 10x3/uL (150-450); RBC Distribution Width 13.8 % (11.5-14.5); White Blood Cell (WBC) Count 5.5 10x3/uL (3.5-10.5)
[2021-06-03 04:02] LABS: ALT (SGPT) 34 U/L (8-55); AST (SGOT) 27 U/L (5-34); Albumin 2.4 g/dL (3.4-4.8); Alkaline Phosphatase 89 U/L (40-110); Anion Gap 10 mmol/L (10-20); BUN (Urea Nitrogen) 23 mg/dL (8.4-25.7); Bilirubin, Total 0.2 mg/dL (0.2-1.2); Calc. Creatinine Clearance 59 mL/min (70-130); Calcium 8.1 mg/dL (7.8-10.44); Carbon Dioxide 19 mmol/L (23-31); Chloride 112 mmol/L (98-107); Globulin 3.2 g/dL (2.4-3.5); Glucose 101 mg/dL (83-110); Protein, Total 5.6 g/dL (5.8-8.1); Sodium 138 mmol/L (136-145)
[2021-06-03 04:05] LABS: Potassium 2.9 mmol/L (3.5-5.1)
[2021-06-03 04:43] LABS: PTT Greater than 139.0 sec (22.0-33.0)
[2021-06-03] MEDS: Metoclopramide HCl 10 MG/2 ML VIAL IVP SCH ×4 (04:48→22:07)
[2021-06-03] MEDS: Piperacillin/Tazobactam 3.375 GM in Sodium Chloride 0.9% 100 ML IVPB SCH ×3 (04:48→22:08)
[2021-06-03] MEDS: Potassium Chloride 20 MEQ in Premix Bag 1 BAG IVPB SCH ×3 (04:49→10:56)
[2021-06-03 05:00] LABS: Magnesium 1.6 mg/dL (1.6-2.6)
[2021-06-03] MEDS ORDERED: Magnesium 2 GM/50 ML BAG (IN WATER) ONE (07:59)
[2021-06-03] MEDS ORDERED: Potassium Bicarbonate/Cit Ac 20 MEQ TAB PO SCH (08:00)
[2021-06-03] MEDS ORDERED: Magnesium 2 GM/50 ML 2 GM in Premix Bag 1 BAG IVPB SCH (08:00)
[2021-06-03] MEDS: Heparin 25,000 units/D5W 500 ML IVPB SCH (09:06)
[2021-06-03] MEDS: Trospium 20 MG TAB PO SCH ×2 (09:10→22:08)
[2021-06-03] MEDS: Polyvinyl Alcohol 1.4%/Povidone 0.6% Opth Drops EA EYE SCH ×2 (09:12→21:06)
[2021-06-03] MEDS: Ciprofloxacin 0.3 % Oint 3.5 GM TUBE EA EYE SCH ×2 (09:15→21:05)
[2021-06-03] MEDS: Pantoprazole 40 MG VIAL IVP SCH ×2 (09:16→22:08)
[2021-06-03] MEDS: Heparin 10,000 UNITS/ 10 ML VIAL SLOW IVP SCH (09:17)
[2021-06-03] MEDS: Amino Acids 4.25 %/Dextrose 5% 1,000 ML IV SCH (09:34)
[2021-06-03] MEDS ORDERED: Sodium Chloride 0.9% 100 ML ONE (14:45)
[2021-06-03 17:17] LABS: PTT 106.9 sec (22.0-33.0)
[2021-06-03] MEDS: Enoxaparin Sodium 80 MG/0.8 ML SYRINGE SC SCH (22:08)
[2021-06-04] MEDS: Azithromycin 250 MG TAB PO SCH (02:05)
[2021-06-04] MEDS: Metoclopramide HCl 10 MG/2 ML VIAL IVP SCH ×4 (05:00→21:42)
[2021-06-04 05:13] LABS: #Eosinphils 0.3 10x3/uL (0.0-0.5); #Monocytes 0.4 10x3/uL (0.0-1.1); #Neutrophils 3.5 10x3/uL (1.5-8.4); %Basophils 0.6 % (0.0-2.0); %Lymphocytes 22.6 % (18.0-47.0); %Monocytes 7.4 % (0.0-10.0); %Neutrophils 63.7 % (40.0-75.0); Hemoglobin 9.2 g/dL (13.5-17.5); Mean Corpuscular HGB CONC 31.7 g/dL (32.0-36.0); Mean Corpuscular Hemoglobin 28.5 pg (27.0-33.0); Mean Corpuscular Volume 89.8 fl (81.2-95.1); Platelet Count 271 10x3/uL (150-450); RBC Distribution Width 13.3 % (11.5-14.5); Red Blood Cell (RBC) Count 3.23 10x6/uL (4.32-5.72); White Blood Cell (WBC) Count 5.4 10x3/uL (3.5-10.5)
[2021-06-04 05:26] LABS: ALT (SGPT) 29 U/L (8-55); AST (SGOT) 29 U/L (5-34); Albumin 2.5 g/dL (3.4-4.8); Alkaline Phosphatase 98 U/L (40-110); Anion Gap 10 mmol/L (10-20); BUN (Urea Nitrogen) 16 mg/dL (8.4-25.7); Bilirubin, Total 0.4 mg/dL (0.2-1.2); Calc. Creatinine Clearance 66 mL/min (70-130); Calcium 8.2 mg/dL (7.8-10.44); Carbon Dioxide 21 mmol/L (23-31); Chloride 110 mmol/L (98-107); Globulin 3.4 g/dL (2.4-3.5); Glucose 85 mg/dL (83-110); Magnesium 1.8 mg/dL (1.6-2.6); Potassium 3.4 mmol/L (3.5-5.1); Protein, Total 5.9 g/dL (5.8-8.1); Sodium 138 mmol/L (136-145)
[2021-06-04] MEDS: Piperacillin/Tazobactam 3.375 GM in Sodium Chloride 0.9% 100 ML IVPB SCH ×3 (06:04→22:18)
[2021-06-04] MEDS: Lactated Ringer's 1,000 ML IV SCH (06:06)
[2021-06-04] MEDS ORDERED: Diphenoxylate HCl/Atropine Tablet PO SCH (07:30)
[2021-06-04] MEDS ORDERED: Potassium Chloride 20 MEQ TAB PO SCH (08:00)
[2021-06-04] MEDS ORDERED: Magnesium 2 GM/50 ML 2 GM in Premix Bag 1 BAG IVPB SCH (08:00)
[2021-06-04] MEDS: Enoxaparin Sodium 80 MG/0.8 ML SYRINGE SC SCH ×2 (09:58→21:39)
[2021-06-04] MEDS: Pantoprazole 40 MG VIAL IVP SCH ×2 (09:58→21:40)
[2021-06-04] MEDS: Polyvinyl Alcohol 1.4%/Povidone 0.6% Opth Drops EA EYE SCH ×2 (10:02→21:37)
[2021-06-04] MEDS: Ciprofloxacin 0.3 % Oint 3.5 GM TUBE EA EYE SCH ×2 (10:03→21:40)
[2021-06-04] MEDS: Trospium 20 MG TAB PO SCH ×2 (10:15→21:40)
[2021-06-05] MEDS: Azithromycin 250 MG TAB PO SCH (01:21)
[2021-06-05] MEDS: Metoclopramide HCl 10 MG/2 ML VIAL IVP SCH ×4 (04:28→22:36)
[2021-06-05 06:00] LABS: Potassium 3.4 mmol/L (3.5-5.1)
[2021-06-05] MEDS: Piperacillin/Tazobactam 3.375 GM in Sodium Chloride 0.9% 100 ML IVPB SCH ×3 (06:06→20:22)
[2021-06-05] MEDS ORDERED: Potassium Chloride 20 MEQ TAB PO SCH (07:30)
[2021-06-05] MEDS ORDERED: Magnesium 2 GM/50 ML 2 GM in Premix Bag 1 BAG IVPB SCH (07:30)
[2021-06-05] MEDS: Lactated Ringer's 1,000 ML IV SCH ×2 (08:50→22:36)
[2021-06-05] MEDS: Pantoprazole 40 MG VIAL IVP SCH ×2 (08:57→20:21)
[2021-06-05] MEDS: Enoxaparin Sodium 80 MG/0.8 ML SYRINGE SC SCH ×2 (08:58→20:21)
[2021-06-05] MEDS: Ciprofloxacin 0.3 % Oint 3.5 GM TUBE EA EYE SCH ×2 (08:58→20:23)
[2021-06-05] MEDS: Polyvinyl Alcohol 1.4%/Povidone 0.6% Opth Drops EA EYE SCH ×2 (08:58→20:22)
[2021-06-05] MEDS: Trospium 20 MG TAB PO SCH ×2 (08:59→20:22)
[2021-06-06] MEDS: Azithromycin 250 MG TAB PO SCH (02:24)
[2021-06-06] MEDS: Metoclopramide HCl 10 MG/2 ML VIAL IVP SCH ×3 (04:21→15:16)
[2021-06-06 04:58] LABS: Magnesium 2.2 mg/dL (1.6-2.6); Potassium 3.7 mmol/L (3.5-5.1)
[2021-06-06] MEDS: Piperacillin/Tazobactam 3.375 GM in Sodium Chloride 0.9% 100 ML IVPB SCH (06:08)
[2021-06-06] MEDS: Enoxaparin Sodium 80 MG/0.8 ML SYRINGE SC SCH ×2 (08:14→21:05)
[2021-06-06] MEDS: Polyvinyl Alcohol 1.4%/Povidone 0.6% Opth Drops EA EYE SCH ×2 (08:14→21:05)
[2021-06-06] MEDS: Ciprofloxacin 0.3 % Oint 3.5 GM TUBE EA EYE SCH ×2 (08:15→21:05)
[2021-06-06] MEDS: Trospium 20 MG TAB PO SCH ×2 (08:15→21:05)
[2021-06-06] MEDS: Pantoprazole 40 MG VIAL IVP SCH (08:15)
[2021-06-06] MEDS ORDERED: Aspirin 81 mg Enteric Coated Tablet PO SCH (09:00)
[2021-06-06 16:46] LABS: SARS-CoV-2 PCR by NAA Not Detected (NotDetected)
[2021-06-06] MEDS: Lactated Ringer's 1,000 ML IV SCH (18:15)
[2021-06-06 21:09] VITALS: BP 140/79; TEMP 97.6
== END 2021-06-06 21:09 | DRG 659 ==
LOC: CSHERS 15:17 → CSHTELE 20:55 → CSHICU 05-31 18:49 → CSHTELE 06-03 17:52
PROVIDERS: ADMIT Family Medicine; ATTEND Internal Medicine
PROC: 0T788DZ Dilation of Bilateral Ureters with Intraluminal Device, Via Natural or Artificial Opening Endoscopic (ICD-10-PCS; 2021-05-20)
PROC: BT141ZZ Fluoroscopy of Kidneys, Ureters and Bladder using Low Osmolar Contrast (ICD-10-PCS; 2021-05-20)
PROC: 0DD68ZX Extraction of Stomach, Via Natural or Artificial Opening Endoscopic, Diagnostic (ICD-10-PCS; 2021-05-25)
PROC: XW03396 Introduction of Ceftolozane/Tazobactam Anti-infective into Peripheral Vein, Percutaneous Approach, New Technology Group 6 (ICD-10-PCS; 2021-05-31)
PROC: 02HV33Z Insertion of Infusion Device into Superior Vena Cava, Percutaneous Approach (ICD-10-PCS; principal; 2021-06-02)
PROC: B5181ZA Fluoroscopy of Superior Vena Cava using Low Osmolar Contrast, Guidance (ICD-10-PCS; 2021-06-02)
PROC: B548ZZA Ultrasonography of Superior Vena Cava, Guidance (ICD-10-PCS; 2021-06-02)
DX: T83.511A Infection and inflammatory reaction due to indwelling urethral catheter, initial encounter (principal); A41.9 Sepsis, unspecified organism; E43 Unspecified severe protein-calorie malnutrition; N13.6 Pyonephrosis; N13.8 Other obstructive and reflux uropathy; D62 Acute posthemorrhagic anemia; D68.8 Other specified coagulation defects; K56.690 Other partial intestinal obstruction; I82.502 Chronic embolism and thrombosis of unspecified deep veins of left lower extremity; N17.9 Acute kidney failure, unspecified; Y83.8 Other surgical procedures as the cause of abnormal reaction of the patient, or of later complication, without mention of misadventure at the time of the procedure; K40.90 Unilateral inguinal hernia, without obstruction or gangrene, not specified as recurrent; I10 Essential (primary) hypertension; R53.81 Other malaise; I48.0 Paroxysmal atrial fibrillation; K31.84 Gastroparesis; K20.90 Esophagitis, unspecified without bleeding; H10.9 Unspecified conjunctivitis; E87.6 Hypokalemia; Z88.8 Allergy status to other drugs, medicaments and biological substances; Z88.5 Allergy status to narcotic agent; Z88.2 Allergy status to sulfonamides; Z79.82 Long term (current) use of aspirin; Z79.899 Other long term (current) drug therapy; Z79.01 Long term (current) use of anticoagulants; Z90.49 Acquired absence of other specified parts of digestive tract; Z87.891 Personal history of nicotine dependence; Z86.711 Personal history of pulmonary embolism; Q63.1 Lobulated, fused and horseshoe kidney; Z68.26 Body mass index [BMI] 26.0-26.9, adult
CPT/HCPCS: 36415; 36569; 36600; 51600; 51702; 70450; 71250; 74176; 74177; 74250; 74430; 80048; 80053; 80061; 80202; 81003; 81015; 82274; 82805; 83036; 83605; 83690; 83735; 83880; 84100; 84132; 84134; 84145; 84443; 85025; 85610; 85730; 86850; 86900; 86901; 87040; 87045; 87046; 87077; 87086; 87186; 87324; 87427; 87449; 93005; 93010; 93306; 94760; 96365; 96375; C1751; C1784; C9113; J0692; J0696; J1170; J1644; J1650; J1885; J2001; J2405; J2543; J2704; J2765; J3010; J3370; J3430; J3475; J3480; J3490; J7050; J7120; Q0162; Q9967; U0002; U0003; U0005

== ENCOUNTER 2021-08-03 04:39 | Inpatient (IN) | payer MEDICARE ==
[2021-08-03 05:00] VITALS: BMI 27.4
[2021-08-03] MEDS: Lactated Ringer's 1,000 ML IV SCH (06:18)
[2021-08-03] MEDS ORDERED: Senokot S 8.6-50 MG TAB PO PRN (06:37)
[2021-08-03] MEDS ORDERED: Vancomycin 1 GM in Premix Bag 1 BAG IVPB SCH (06:45)
[2021-08-03 07:30] LABS: #Eosinphils 0.2 10x3/uL (0.0-0.5); #Monocytes 0.6 10x3/uL (0.0-1.1); #Neutrophils 7.2 10x3/uL (1.5-8.4); %Basophils 0.4 % (0.0-2.0); %Eosinophils 1.9 % (0.0-6.0); %Lymphocytes 11.4 % (18.0-47.0); %Monocytes 6.5 % (0.0-10.0); %Neutrophils 79.4 % (40.0-75.0); Hemoglobin 10.5 g/dL (13.5-17.5); Mean Corpuscular HGB CONC 31.4 g/dL (32.0-36.0); Mean Corpuscular Hemoglobin 28.1 pg (27.0-33.0); Mean Corpuscular Volume 89.3 fl (81.2-95.1); Mean Platelet Volume 8.6 fl (7.4-10.4); Platelet Count 185 10x3/uL (150-450); RBC Distribution Width 14.1 % (11.5-14.5); Red Blood Cell (RBC) Count 3.74 10x6/uL (4.32-5.72)
[2021-08-03] MEDS ORDERED: VANCOMYCIN 1.75 GM/350 ML BAG 1.75 GM in Premix Bag 1 BAG IVPB SCH (07:30)
[2021-08-03 07:36] LABS: Anion Gap 11 mmol/L (10-20); BUN (Urea Nitrogen) 28 mg/dL (8.4-25.7); Calc. Creatinine Clearance 46 mL/min (70-130); Calcium 8.1 mg/dL (7.8-10.44); Carbon Dioxide 19 mmol/L (23-31); Chloride 110 mmol/L (98-107); Glucose 87 mg/dL (83-110); Magnesium 1.7 mg/dL (1.6-2.6); Potassium 4.2 mmol/L (3.5-5.1); Sodium 136 mmol/L (136-145)
[2021-08-03] MEDS ORDERED: Cefepime 2 GM in Sodium Chloride 0.9% 100 ML IVPB SCH (08:00)
[2021-08-03] MEDS ORDERED: VANCOMYCIN IVPB PRN (08:04)
[2021-08-03] MEDS ORDERED: [UNRECOGNIZED DRUG - OTHER] IVPB PRN (08:04)
[2021-08-03] MEDS ORDERED: Enoxaparin Sodium 40 MG/0.4 ML SYRINGE SC SCH (09:00)
[2021-08-03] MEDS ORDERED: Piperacillin/Tazobactam 3.375 GM in Sodium Chloride 0.9% 100 ML IVPB SCH (10:00)
[2021-08-03] MEDS ORDERED: Sodium Chloride 0.9% 100 ML ONE (14:58)
[2021-08-03] MEDS: Piperacillin/Tazobactam 3.375 GM in Sodium Chloride 0.9% 100 ML IVPB SCH ×2 (15:11→20:54)
[2021-08-03] MEDS: Apixaban 5 MG TAB PO SCH (19:46)
[2021-08-03] MEDS: Acetaminophen 325 MG TAB PO PRN (20:35)
[2021-08-04] MEDS: Lactated Ringer's 1,000 ML IV SCH ×2 (00:03→19:40)
[2021-08-04] MEDS: Piperacillin/Tazobactam 3.375 GM in Sodium Chloride 0.9% 100 ML IVPB SCH ×3 (05:01→22:35)
[2021-08-04] MEDS: Vancomycin HCl 1 GM in Sodium Chloride 0.9% 250 ML 250 ML IVPB SCH (08:11)
[2021-08-04] MEDS: Apixaban 5 MG TAB PO SCH ×2 (08:12→19:33)
[2021-08-04] MEDS ORDERED: Melatonin 3 MG TAB PO PRN (10:45)
[2021-08-05 04:17] LABS: Anion Gap 12 mmol/L (10-20); BUN (Urea Nitrogen) 17 mg/dL (8.4-25.7); Calc. Creatinine Clearance 54 mL/min (70-130); Calcium 8.3 mg/dL (7.8-10.44); Carbon Dioxide 19 mmol/L (23-31); Chloride 110 mmol/L (98-107); Glucose 87 mg/dL (83-110); Potassium 3.7 mmol/L (3.5-5.1); Sodium 137 mmol/L (136-145)
[2021-08-05 04:54] LABS: #Eosinphils 0.5 10x3/uL (0.0-0.5); #Monocytes 0.5 10x3/uL (0.0-1.1); #Neutrophils 4.3 10x3/uL (1.5-8.4); %Basophils 0.5 % (0.0-2.0); %Eosinophils 7.4 % (0.0-6.0); %Lymphocytes 15.5 % (18.0-47.0); %Monocytes 7.4 % (0.0-10.0); %Neutrophils 68.9 % (40.0-75.0); Hemoglobin 9.7 g/dL (13.5-17.5); Mean Corpuscular HGB CONC 30.5 g/dL (32.0-36.0); Mean Corpuscular Hemoglobin 27.6 pg (27.0-33.0); Mean Corpuscular Volume 90.3 fl (81.2-95.1); Mean Platelet Volume 8.9 fl (7.4-10.4); Platelet Count 206 10x3/uL (150-450); RBC Distribution Width 14.3 % (11.5-14.5); Red Blood Cell (RBC) Count 3.52 10x6/uL (4.32-5.72); White Blood Cell (WBC) Count 6.2 10x3/uL (3.5-10.5)
[2021-08-05] MEDS: Piperacillin/Tazobactam 3.375 GM in Sodium Chloride 0.9% 100 ML IVPB SCH ×2 (05:47→13:02)
[2021-08-05] MEDS: Lactated Ringer's 1,000 ML IV SCH ×2 (06:12→14:52)
[2021-08-05] MEDS ORDERED: Potassium Chloride 10 MEQ TAB PO SCH (08:00)
[2021-08-05] MEDS: Apixaban 5 MG TAB PO SCH (08:30)
[2021-08-05] MEDS ORDERED: Furosemide 20 MG TAB PO SCH (09:00)
[2021-08-05] MEDS: Vancomycin HCl 1 GM in Sodium Chloride 0.9% 250 ML 250 ML IVPB SCH (09:38)
[2021-08-05] MEDS: Acetaminophen 325 MG TAB PO PRN (13:04)
[2021-08-05 16:00] VITALS: BP 122/78; TEMP 97.6
== END 2021-08-05 16:45 | disposition home or self-care (01) | DRG 698 ==
LOC: CSHTELE 04:39
PROVIDERS: ADMIT Family Medicine; ATTEND Hospitalist
DX: T83.511A Infection and inflammatory reaction due to indwelling urethral catheter, initial encounter (principal); A41.51 Sepsis due to Escherichia coli [E. coli]; N30.01 Acute cystitis with hematuria; N31.9 Neuromuscular dysfunction of bladder, unspecified; K40.90 Unilateral inguinal hernia, without obstruction or gangrene, not specified as recurrent; I48.0 Paroxysmal atrial fibrillation; K31.84 Gastroparesis; I95.9 Hypotension, unspecified; Y84.6 Urinary catheterization as the cause of abnormal reaction of the patient, or of later complication, without mention of misadventure at the time of the procedure; I12.9 Hypertensive chronic kidney disease with stage 1 through stage 4 chronic kidney disease, or unspecified chronic kidney disease; N18.30 Chronic kidney disease, stage 3 unspecified; Z86.711 Personal history of pulmonary embolism; Z86.718 Personal history of other venous thrombosis and embolism; Z79.01 Long term (current) use of anticoagulants; Z87.442 Personal history of urinary calculi; Z79.899 Other long term (current) drug therapy; Z88.8 Allergy status to other drugs, medicaments and biological substances; Z88.2 Allergy status to sulfonamides; Z79.82 Long term (current) use of aspirin; Z90.89 Acquired absence of other organs; Z98.49 Cataract extraction status, unspecified eye; Z87.891 Personal history of nicotine dependence
CPT/HCPCS: 36415; 74176; 80048; 80202; 83735; 85025; 87086; 93005; 93010; J1650; J2543; J3370; J3490; J7050; J7120

== ENCOUNTER 2022-06-22 13:49 | Inpatient (IN) | payer MEDICARE ==
[2022-06-22] MEDS ORDERED: Acetaminophen 325 MG TAB PO PRN (15:30)
[2022-06-22] MEDS ORDERED: Senokot S 8.6-50 MG TAB PO PRN (15:30)
[2022-06-22] MEDS ORDERED: Ondansetron PF 4 MG/2 ML Vial IVP PRN (15:36)
[2022-06-22] MEDS ORDERED: Piperacillin/Tazobactam 3.375 GM in Sodium Chloride 0.9% 100 ML IVPB SCH (18:00)
[2022-06-22 18:19] VITALS: BMI 26.8
[2022-06-23] MEDS: Piperacillin/Tazobactam 3.375 GM in Sodium Chloride 0.9% 100 ML IVPB SCH ×4 (01:20→22:56)
[2022-06-23 06:14] LABS: ALT (SGPT) 9 U/L (8-55); AST (SGOT) 14 U/L (5-34); Albumin 3.1 g/dL (3.4-4.8); Alkaline Phosphatase 105 U/L (40-110); Anion Gap 10 mmol/L (10-20); BUN (Urea Nitrogen) 27 mg/dL (8.4-25.7); Bilirubin, Total 0.4 mg/dL (0.2-1.2); Calc. Creatinine Clearance 43 mL/min (70-130); Calcium 8.9 mg/dL (7.8-10.44); Carbon Dioxide 22 mmol/L (23-31); Chloride 111 mmol/L (98-107); Estimated GFR 40; Globulin 3.4 g/dL (2.4-3.5); Glucose 88 mg/dL (83-110); Potassium 4.1 mmol/L (3.5-5.1); Protein, Total 6.5 g/dL (5.8-8.1); Sodium 139 mmol/L (136-145)
[2022-06-23 06:18] LABS: #Eosinphils 0.3 10x3/uL (0.0-0.5); #Monocytes 0.5 10x3/uL (0.0-1.1); #Neutrophils 4.3 10x3/uL (1.5-8.4); %Basophils 0.5 % (0.0-2.0); %Lymphocytes 20.2 % (18.0-47.0); %Monocytes 8.1 % (0.0-10.0); %Neutrophils 66.9 % (40.0-75.0); Hemoglobin 11.5 g/dL (13.5-17.5); Mean Corpuscular Hemoglobin 29.9 pg (27.0-33.0); Mean Corpuscular Volume 90.9 fl (81.2-95.1); Mean Platelet Volume 9.4 fl (7.4-10.4); Platelet Count 202 10x3/uL (150-450); RBC Distribution Width 12.9 % (11.5-14.5); Red Blood Cell (RBC) Count 3.84 10x6/uL (4.32-5.72); White Blood Cell (WBC) Count 6.4 10x3/uL (3.5-10.5)
[2022-06-23] MEDS ORDERED: Enoxaparin Sodium 40 MG/0.4 ML SYRINGE SC SCH (09:00)
[2022-06-23] MEDS ORDERED: Guaifenesin DM 100-10/5 ML UDCUP PO PRN (10:18)
[2022-06-23] MEDS ORDERED: Fluticasone Propionate Nasal Spray 16 gm Bottle NASAL SCH (11:00)
[2022-06-23] MEDS: Apixaban 5 MG TAB PO SCH (21:14)
[2022-06-23] MEDS: Fluticasone Propionate Nasal Spray 16 gm Bottle NASAL SCH (21:15)
[2022-06-24 05:58] LABS: Anion Gap 11 mmol/L (10-20); BUN (Urea Nitrogen) 23 mg/dL (8.4-25.7); Calc. Creatinine Clearance 43 mL/min (70-130); Calcium 8.8 mg/dL (7.8-10.44); Carbon Dioxide 22 mmol/L (23-31); Chloride 106 mmol/L (98-107); Estimated GFR 41; Glucose 85 mg/dL (83-110); Potassium 3.9 mmol/L (3.5-5.1); Sodium 135 mmol/L (136-145)
[2022-06-24] MEDS: Piperacillin/Tazobactam 3.375 GM in Sodium Chloride 0.9% 100 ML IVPB SCH ×3 (06:18→22:18)
[2022-06-24] MEDS: Apixaban 5 MG TAB PO SCH ×2 (08:46→21:19)
[2022-06-24] MEDS: Furosemide 20 MG TAB PO SCH (08:46)
[2022-06-24] MEDS: Aspirin 81 mg Enteric Coated Tablet PO SCH (08:46)
[2022-06-24] MEDS: Fluticasone Propionate Nasal Spray 16 gm Bottle NASAL SCH ×2 (09:00→21:19)
[2022-06-25] MEDS: Piperacillin/Tazobactam 3.375 GM in Sodium Chloride 0.9% 100 ML IVPB SCH ×3 (06:08→23:13)
[2022-06-25] MEDS: Fluticasone Propionate Nasal Spray 16 gm Bottle NASAL SCH ×2 (09:26→20:48)
[2022-06-25] MEDS: Aspirin 81 mg Enteric Coated Tablet PO SCH (09:26)
[2022-06-25] MEDS: Furosemide 20 MG TAB PO SCH (09:26)
[2022-06-25] MEDS: Apixaban 5 MG TAB PO SCH ×2 (09:26→20:48)
[2022-06-26] MEDS: Piperacillin/Tazobactam 3.375 GM in Sodium Chloride 0.9% 100 ML IVPB SCH (07:25)
[2022-06-26] MEDS: Aspirin 81 mg Enteric Coated Tablet PO SCH (08:26)
[2022-06-26] MEDS: Fluticasone Propionate Nasal Spray 16 gm Bottle NASAL SCH (08:26)
[2022-06-26] MEDS: Apixaban 5 MG TAB PO SCH (08:26)
[2022-06-26] MEDS: Furosemide 20 MG TAB PO SCH (08:26)
[2022-06-26 12:35] VITALS: BP 96/55; TEMP 97.7
== END 2022-06-26 12:15 | disposition home or self-care (01) | DRG 698 ==
LOC: CSHERS 13:49 → CSHTELE 17:21
PROVIDERS: ADMIT Family Medicine; ATTEND Family Medicine
DX: T83.511A Infection and inflammatory reaction due to indwelling urethral catheter, initial encounter (principal); A41.9 Sepsis, unspecified organism; R65.21 Severe sepsis with septic shock; Y84.6 Urinary catheterization as the cause of abnormal reaction of the patient, or of later complication, without mention of misadventure at the time of the procedure; N31.9 Neuromuscular dysfunction of bladder, unspecified; I48.0 Paroxysmal atrial fibrillation; N39.0 Urinary tract infection, site not specified; N18.30 Chronic kidney disease, stage 3 unspecified; Z79.82 Long term (current) use of aspirin; Z86.718 Personal history of other venous thrombosis and embolism; Z79.899 Other long term (current) drug therapy; Z88.6 Allergy status to analgesic agent; Z88.8 Allergy status to other drugs, medicaments and biological substances; Z88.2 Allergy status to sulfonamides
CPT/HCPCS: 80048; 80053; 85025; 87086; 99285; J2543; J3490

== ENCOUNTER 2023-01-17 19:41 | Inpatient (IN) | payer MEDICARE ==
[~2023-01-17 19:41] MED LIST: Iopamidol 300 61% 100 ML VIAL FS ONE
[2023-01-17] MEDS ORDERED: Ondansetron PF 4 MG/2 ML Vial ONE (20:10)
[2023-01-17] MEDS ORDERED: Acetaminophen 500 MG TAB ONE (20:36)
[2023-01-17 20:52] LABS: #Eosinphils 0.1 10x3/uL (0.0-0.5); #Monocytes 0.7 10x3/uL (0.0-1.1); #Neutrophils 7.2 10x3/uL (1.5-8.4); %Basophils 0.4 % (0.0-2.0); %Eosinophils 1.3 % (0.0-6.0); %Lymphocytes 15.1 % (18.0-47.0); %Monocytes 7.3 % (0.0-10.0); %Neutrophils 75.7 % (40.0-75.0); Hemoglobin 13.3 g/dL (13.5-17.5); Mean Corpuscular HGB CONC 32.4 g/dL (32.0-36.0); Mean Corpuscular Volume 89.5 fl (81.2-95.1); Mean Platelet Volume 8.8 fl (7.4-10.4); Platelet Count 289 10x3/uL (150-450); RBC Distribution Width 12.5 % (11.5-14.5); Red Blood Cell (RBC) Count 4.59 10x6/uL (4.32-5.72); White Blood Cell (WBC) Count 9.5 10x3/uL (3.5-10.5)
[2023-01-17 21:06] LABS: ALT (SGPT) 11 U/L (8-55); Albumin 3.6 g/dL (3.4-4.8); Alkaline Phosphatase 131 U/L (40-110); Anion Gap 17 mmol/L (10-20); BUN (Urea Nitrogen) 31 mg/dL (8.4-25.7); Bilirubin, Total 0.4 mg/dL (0.2-1.2); Calc. Creatinine Clearance 0 mL/min (70-130); Calcium 9.2 mg/dL (7.8-10.44); Carbon Dioxide 18 mmol/L (23-31); Chloride 103 mmol/L (98-107); Estimated GFR 30; Globulin 4.7 g/dL (2.4-3.5); Glucose 105 mg/dL (83-110); Lipase 20 U/L (8-78); Potassium 4.6 mmol/L (3.5-5.1); Protein, Total 8.3 g/dL (5.8-8.1); Sodium 133 mmol/L (136-145)
[2023-01-17 21:07] LABS: AST (SGOT) 22 U/L (5-34)
[2023-01-17] MEDS ORDERED: cefTRIAXone (ROCEPHIN) 2 GM VIAL ONE (21:28)
[2023-01-17 22:13] LABS: Bilirubin Neg (Negative); Blood, Urine 150 (Negative); Clarity Cloudy (Clear); Glucose, Urine (Dipstick) Normal (Negative); Ketone, Urine Negative (Negative); Leukocyte 500 (Negative); Nitrite Negative (Negative); Protein, Urine (Dipstick) 100 mg/dl (Neg-Trace); Specific Gravity, Urine 1.015 (1.005-1.030); Urobilinogen Normal mg/dL (Less than 2)
[2023-01-17 22:16] LABS: CAUTI Indications for Culture Pelvic or flank pain
[2023-01-17 22:29] LABS: Bacteria/HPF 4+ HPF (None Seen); Calcium Oxalate Crystals 2+ HPF (None Seen); RBC/HPF 0-3 HPF (0-3); Squamous Epithelial 0-3 HPF (0-3); WBC/HPF Greater than 50 HPF (0-3)
[2023-01-17 22:30] LABS: Urine Culture Reflex Yes Yes
[2023-01-17] MEDS ORDERED: fentaNYL 50 mcg/mL 1 mL Vial ONE (22:38)
[2023-01-17] MEDS ORDERED: dilTIAZem 25 MG/5 ML VIAL ONE (23:08)
[2023-01-17] MEDS ORDERED: Calcium Carbonate 500 MG ChewTAB PO PRN (23:22)
[2023-01-17] MEDS ORDERED: Senokot S 8.6-50 MG TAB PO PRN (23:22)
[2023-01-17] MEDS ORDERED: Ondansetron PF 4 MG/2 ML Vial IVP PRN (23:22)
[2023-01-17] MEDS ORDERED: Guaifenesin DM 100-10/5 ML UDCUP PO PRN (23:22)
[2023-01-17] MEDS ORDERED: Acetaminophen 325 MG TAB PO PRN (23:22)
[2023-01-17 23:36] LABS: Lactic Acid 1.8 mmol/L (0.5-2.2)
[2023-01-18] MEDS ORDERED: Lactated Ringer's 1,000 ML IV SCH (00:45)
[2023-01-18] MEDS ORDERED: Albumin 25% 25 GM/100 ML BOT IVPB SCH (01:30)
[2023-01-18] MEDS ORDERED: Albumin 25% 100 ML ONE (01:37)
[2023-01-18] MEDS ORDERED: NOREPINEPHRINE 8 MG/250 ML-D5W 250 ML ONE (02:41)
[2023-01-18] MEDS ORDERED: NOREPINEPHRINE 8 MG/250 ML-D5W 250 ML IVPB SCH (02:45)
[2023-01-18 03:38] VITALS: BMI 25.4
[2023-01-18 05:17] LABS: #Monocytes 0.9 10x3/uL (0.0-1.1); #Neutrophils 7.7 10x3/uL (1.5-8.4); %Basophils 0.3 % (0.0-2.0); %Eosinophils 0.2 % (0.0-6.0); %Lymphocytes 13.6 % (18.0-47.0); %Monocytes 8.9 % (0.0-10.0); %Neutrophils 76.6 % (40.0-75.0); Hemoglobin 11.3 g/dL (13.5-17.5); Mean Corpuscular HGB CONC 32.6 g/dL (32.0-36.0); Mean Platelet Volume 8.6 fl (7.4-10.4); Platelet Count 228 10x3/uL (150-450); RBC Distribution Width 12.8 % (11.5-14.5); White Blood Cell (WBC) Count 10.1 10x3/uL (3.5-10.5)
[2023-01-18 05:27] LABS: Anion Gap 14 mmol/L (10-20); BUN (Urea Nitrogen) 32 mg/dL (8.4-25.7); Calc. Creatinine Clearance 32 mL/min (70-130); Calcium 8.3 mg/dL (7.8-10.44); Carbon Dioxide 17 mmol/L (23-31); Chloride 109 mmol/L (98-107); Estimated GFR 30; Glucose 114 mg/dL (83-110); Potassium 4.2 mmol/L (3.5-5.1); Sodium 136 mmol/L (136-145)
[2023-01-18] MEDS: dilTIAZem CD 120 MG CAP PO SCH (07:43)
[2023-01-18] MEDS: Cefepime 1 GM in Sodium Chloride 0.9% 100 ML IVPB SCH ×2 (07:43→20:46)
[2023-01-18] MEDS ORDERED: dilTIAZem CD 180 MG CAP PO SCH (09:00)
[2023-01-18] MEDS: Lactated Ringer's 1,000 ML IV SCH (09:53)
[2023-01-19 04:08] LABS: #Eosinphils 0.2 10x3/uL (0.0-0.5); #Monocytes 0.5 10x3/uL (0.0-1.1); #Neutrophils 4.6 10x3/uL (1.5-8.4); %Basophils 0.4 % (0.0-2.0); %Lymphocytes 20.8 % (18.0-47.0); %Monocytes 6.7 % (0.0-10.0); %Neutrophils 68.8 % (40.0-75.0); Hemoglobin 10.1 g/dL (13.5-17.5); Mean Corpuscular HGB CONC 32.2 g/dL (32.0-36.0); Mean Corpuscular Hemoglobin 28.9 pg (27.0-33.0); Mean Corpuscular Volume 89.7 fl (81.2-95.1); Mean Platelet Volume 8.6 fl (7.4-10.4); Platelet Count 171 10x3/uL (150-450); RBC Distribution Width 13.1 % (11.5-14.5); White Blood Cell (WBC) Count 6.7 10x3/uL (3.5-10.5)
[2023-01-19 04:19] LABS: Anion Gap 12 mmol/L (10-20); BUN (Urea Nitrogen) 28 mg/dL (8.4-25.7); Calc. Creatinine Clearance 37 mL/min (70-130); Calcium 8.5 mg/dL (7.8-10.44); Carbon Dioxide 18 mmol/L (23-31); Chloride 112 mmol/L (98-107); Estimated GFR 35; Glucose 86 mg/dL (83-110); Potassium 3.9 mmol/L (3.5-5.1); Sodium 138 mmol/L (136-145)
[2023-01-19] MEDS: Lactated Ringer's 1,000 ML IV SCH ×2 (06:33→17:54)
[2023-01-19] MEDS: Cefepime 1 GM in Sodium Chloride 0.9% 100 ML IVPB SCH ×2 (07:47→20:21)
[2023-01-19] MEDS: dilTIAZem CD 120 MG CAP PO SCH (07:47)
[2023-01-20 03:26] LABS: #Eosinphils 0.3 10x3/uL (0.0-0.5); #Monocytes 0.5 10x3/uL (0.0-1.1); #Neutrophils 4.6 10x3/uL (1.5-8.4); %Basophils 0.4 % (0.0-2.0); %Eosinophils 4.1 % (0.0-6.0); %Lymphocytes 20.6 % (18.0-47.0); %Monocytes 7.1 % (0.0-10.0); %Neutrophils 67.5 % (40.0-75.0); Hemoglobin 10.4 g/dL (13.5-17.5); Mean Corpuscular HGB CONC 32.3 g/dL (32.0-36.0); Mean Corpuscular Hemoglobin 28.4 pg (27.0-33.0); Mean Platelet Volume 8.8 fl (7.4-10.4); Platelet Count 178 10x3/uL (150-450); RBC Distribution Width 12.9 % (11.5-14.5); Red Blood Cell (RBC) Count 3.66 10x6/uL (4.32-5.72); White Blood Cell (WBC) Count 6.9 10x3/uL (3.5-10.5)
[2023-01-20 03:37] LABS: Anion Gap 13 mmol/L (10-20); BUN (Urea Nitrogen) 24 mg/dL (8.4-25.7); Calc. Creatinine Clearance 50 mL/min (70-130); Calcium 8.5 mg/dL (7.8-10.44); Carbon Dioxide 17 mmol/L (23-31); Chloride 108 mmol/L (98-107); Estimated GFR 50; Glucose 83 mg/dL (83-110); Potassium 3.8 mmol/L (3.5-5.1); Sodium 134 mmol/L (136-145)
[2023-01-20] MEDS: Cefepime 1 GM in Sodium Chloride 0.9% 100 ML IVPB SCH ×2 (07:38→20:29)
[2023-01-20] MEDS: dilTIAZem CD 120 MG CAP PO SCH (07:38)
[2023-01-20] MEDS: Apixaban 5 MG TAB PO SCH (20:29)
[2023-01-21 03:54] LABS: #Eosinphils 0.3 10x3/uL (0.0-0.5); #Monocytes 0.4 10x3/uL (0.0-1.1); #Neutrophils 4.9 10x3/uL (1.5-8.4); %Basophils 0.4 % (0.0-2.0); %Eosinophils 3.9 % (0.0-6.0); %Lymphocytes 19.1 % (18.0-47.0); %Monocytes 5.8 % (0.0-10.0); %Neutrophils 70.5 % (40.0-75.0); Hemoglobin 11.5 g/dL (13.5-17.5); Mean Corpuscular HGB CONC 32.2 g/dL (32.0-36.0); Mean Corpuscular Hemoglobin 28.4 pg (27.0-33.0); Mean Corpuscular Volume 88.1 fl (81.2-95.1); Platelet Count 217 10x3/uL (150-450); RBC Distribution Width 12.9 % (11.5-14.5); Red Blood Cell (RBC) Count 4.05 10x6/uL (4.32-5.72); White Blood Cell (WBC) Count 6.9 10x3/uL (3.5-10.5)
[2023-01-21 04:09] LABS: Anion Gap 14 mmol/L (10-20); BUN (Urea Nitrogen) 21 mg/dL (8.4-25.7); Calc. Creatinine Clearance 56 mL/min (70-130); Calcium 8.9 mg/dL (7.8-10.44); Carbon Dioxide 18 mmol/L (23-31); Chloride 107 mmol/L (98-107); Estimated GFR 58; Glucose 87 mg/dL (83-110); Potassium 3.6 mmol/L (3.5-5.1); Sodium 135 mmol/L (136-145)
[2023-01-21 05:13] VITALS: TEMP 98.2
[2023-01-21] MEDS: Cefepime 1 GM in Sodium Chloride 0.9% 100 ML IVPB SCH (08:05)
[2023-01-21] MEDS: Apixaban 5 MG TAB PO SCH (08:05)
[2023-01-21] MEDS: dilTIAZem CD 120 MG CAP PO SCH (08:05)
[2023-01-21 08:14] VITALS: BP 103/61
== END 2023-01-21 11:04 | disposition home or self-care (01) | DRG 698 ==
LOC: CSHERS 19:41 → CSHERHOLD 23:14 → CSHIMCU 01-18 03:24
PROVIDERS: ADMIT Student in an Organized Health Care Education/Training Program; ATTEND Hospitalist
PROC: 3E033XZ Introduction of Vasopressor into Peripheral Vein, Percutaneous Approach (ICD-10-PCS; principal; 2023-01-18)
PROC: 0T2BX0Z Change Drainage Device in Bladder, External Approach (ICD-10-PCS; 2023-01-18)
DX: T83.511A Infection and inflammatory reaction due to indwelling urethral catheter, initial encounter (principal); A41.9 Sepsis, unspecified organism; R65.21 Severe sepsis with septic shock; N17.9 Acute kidney failure, unspecified; N13.6 Pyonephrosis; E87.20 Acidosis, unspecified; I12.9 Hypertensive chronic kidney disease with stage 1 through stage 4 chronic kidney disease, or unspecified chronic kidney disease; E86.0 Dehydration; Y84.6 Urinary catheterization as the cause of abnormal reaction of the patient, or of later complication, without mention of misadventure at the time of the procedure; K40.90 Unilateral inguinal hernia, without obstruction or gangrene, not specified as recurrent; I48.0 Paroxysmal atrial fibrillation; N18.30 Chronic kidney disease, stage 3 unspecified; Z79.01 Long term (current) use of anticoagulants; Z86.718 Personal history of other venous thrombosis and embolism; Z86.711 Personal history of pulmonary embolism; Z91.148 Patient's other noncompliance with medication regimen for other reason; Z79.82 Long term (current) use of aspirin; Z79.899 Other long term (current) drug therapy; Z88.6 Allergy status to analgesic agent; Z88.8 Allergy status to other drugs, medicaments and biological substances; Z88.2 Allergy status to sulfonamides; Z90.89 Acquired absence of other organs; Z98.49 Cataract extraction status, unspecified eye; Z82.49 Family history of ischemic heart disease and other diseases of the circulatory system; Z83.3 Family history of diabetes mellitus; Z87.891 Personal history of nicotine dependence
CPT/HCPCS: 36415; 74177; 80048; 80053; 81001; 83605; 83690; 84145; 85025; 87040; 87086; 93005; 94760; 94762; J0692; J0696; J1650; J2405; J3010; J3490; J7120; P9047; Q9967

== ENCOUNTER 2023-05-03 17:43 | Inpatient (IN) | payer MEDICARE ==
[2023-05-03 18:52] LABS: #Eosinphils 0.1 10x3/uL (0.0-0.5); #Monocytes 1.2 10x3/uL (0.0-1.1); #Neutrophils 6.5 10x3/uL (1.5-8.4); %Basophils 0.3 % (0.0-2.0); %Eosinophils 0.7 % (0.0-6.0); %Lymphocytes 12.1 % (18.0-47.0); %Monocytes 13.1 % (0.0-10.0); %Neutrophils 73.5 % (40.0-75.0); Hematocrit 35.7 % (38.8-50.0); Hemoglobin 11.2 g/dL (13.5-17.5); Mean Corpuscular HGB CONC 31.4 g/dL (32.0-36.0); Mean Corpuscular Hemoglobin 28.9 pg (27.0-33.0); Mean Platelet Volume 8.6 fl (7.4-10.4); Platelet Count 221 10x3/uL (150-450); RBC Distribution Width 13.1 % (11.5-14.5); Red Blood Cell (RBC) Count 3.88 10x6/uL (4.32-5.72); White Blood Cell (WBC) Count 8.8 10x3/uL (3.5-10.5)
[2023-05-03 18:59] LABS: Actual Bicarbonate (HCO3v) 13.2 mEq/L (22-28); Base Excess -13.5 mEq/L (-2 - +2); Calcium, Ionized (venous) 1.14 mmol/L (1.16-1.32); Chloride (VBG) 105 mmol/L (98-106); Hematocrit-VBG 38 % (42.0-52.0); Potassium (VBG) 3.89 mmol/L (3.70-5.30); Puncture Site Other Site; RapidComm Collect By CBN; Sodium 134 mmol/L (133-146); pH (venous) 7.214 (7.32-7.43)
[2023-05-03 19:01] LABS: ALT (SGPT) 10 U/L (8-55); AST (SGOT) 15 U/L (5-34); Albumin 2.9 g/dL (3.4-4.8); Alkaline Phosphatase 92 U/L (40-110); Anion Gap 15 mmol/L (10-20); BUN (Urea Nitrogen) 41 mg/dL (8.4-25.7); Bilirubin, Total 0.5 mg/dL (0.2-1.2); Calc. Creatinine Clearance 0 mL/min (70-130); Calcium 8.4 mg/dL (7.8-10.44); Carbon Dioxide 14 mmol/L (23-31); Chloride 109 mmol/L (98-107); Estimated GFR 30; Globulin 4.1 g/dL (2.4-3.5); Glucose 140 mg/dL (83-110); Potassium 3.8 mmol/L (3.5-5.1); Sodium 134 mmol/L (136-145)
[2023-05-03] MEDS ORDERED: cefTRIAXone (ROCEPHIN) 1 GM VIAL ONE (19:16)
[2023-05-03 21:10] LABS: Bilirubin Neg (Negative); Blood, Urine 250 (Negative); Clarity Cloudy (Clear); Glucose, Urine (Dipstick) Normal (Negative); Ketone, Urine Negative (Negative); Leukocyte 500 (Negative); Nitrite Positive (Negative); Protein, Urine (Dipstick) 100 mg/dl (Neg-Trace); Urobilinogen Normal mg/dL (Less than 2)
[2023-05-03 21:12] LABS: Lactic Acid 0.7 mmol/L (0.5-2.2)
[2023-05-03 21:19] LABS: Bacteria/HPF 4+ HPF (None Seen); CAUTI Indications for Culture Pelvic or flank pain; RBC/HPF 21-50 HPF (0-3); Squamous Epithelial 0-3 HPF (0-3); WBC/HPF Greater than 50 HPF (0-3)
[2023-05-03 21:20] LABS: Mucous/LPF 1+ LPF (<2+); Urine Culture Reflex Yes Yes
[2023-05-03 23:45] VITALS: BMI 25.8
[2023-05-03] MEDS ORDERED: Communication Order-Pharmacy FS ONE (23:52)
[2023-05-03] MEDS ORDERED: Senokot S 8.6-50 MG TAB PO PRN (23:55)
[2023-05-03] MEDS: Sodium Chloride 0.9% 1,000 ML IV SCH (23:58)
[2023-05-04] MEDS ORDERED: Cefepime 2 GM in Sodium Chloride 0.9% 100 ML IVPB SCH (00:01)
[2023-05-04] MEDS ORDERED: Apixaban 2.5 MG TAB PO SCH ×2 (00:15→09:00)
[2023-05-04] MEDS ORDERED: Cefepime 2 GM VIAL ONE (00:20)
[2023-05-04 00:26] LABS: Magnesium 1.8 mg/dL (1.6-2.6)
[2023-05-04] MEDS ORDERED: Apixaban 5 MG TAB ONE (00:36)
[2023-05-04 04:31] LABS: #Eosinphils 0.3 10x3/uL (0.0-0.5); #Monocytes 0.8 10x3/uL (0.0-1.1); #Neutrophils 3.6 10x3/uL (1.5-8.4); %Basophils 0.5 % (0.0-2.0); %Eosinophils 5.3 % (0.0-6.0); %Lymphocytes 22.6 % (18.0-47.0); %Monocytes 13.3 % (0.0-10.0); %Neutrophils 58.1 % (40.0-75.0); Hematocrit 29.1 % (38.8-50.0); Hemoglobin 9.7 g/dL (13.5-17.5); Mean Corpuscular HGB CONC 33.3 g/dL (32.0-36.0); Mean Corpuscular Hemoglobin 29.4 pg (27.0-33.0); Mean Corpuscular Volume 88.2 fl (81.2-95.1); Mean Platelet Volume 8.7 fl (7.4-10.4); Platelet Count 190 10x3/uL (150-450); RBC Distribution Width 13.2 % (11.5-14.5); White Blood Cell (WBC) Count 6.2 10x3/uL (3.5-10.5)
[2023-05-04 04:32] LABS: Anion Gap 10 mmol/L (10-20); BUN (Urea Nitrogen) 35 mg/dL (8.4-25.7); Calc. Creatinine Clearance 36 mL/min (70-130); Carbon Dioxide 15 mmol/L (23-31); Chloride 115 mmol/L (98-107); Estimated GFR 38; Glucose 104 mg/dL (83-110); Potassium 3.3 mmol/L (3.5-5.1); Sodium 137 mmol/L (136-145)
[2023-05-04] MEDS ORDERED: Potassium Chloride 20 MEQ TAB ONE (05:36)
[2023-05-04] MEDS ORDERED: Potassium Chloride 20 MEQ TAB PO SCH (05:45)
[2023-05-04] MEDS: Sodium Chloride 0.9% 1,000 ML IV SCH (05:51)
[2023-05-04] MEDS ORDERED: dilTIAZem CD 120 MG CAP PO SCH (09:00)
[2023-05-04] MEDS ORDERED: Vancomycin 1 GM in Premix 1 BAG IVPB SCH ×2 (10:30→11:00)
[2023-05-04] MEDS ORDERED: Apixaban 2.5 MG TAB ONE (10:34)
[2023-05-04] MEDS ORDERED: fentaNYL 50 mcg/mL 1 mL Vial SLOW IVP PRN (10:38)
[2023-05-04] MEDS ORDERED: Magnesium 2 GM/50 ML(in water) 2 GM in Premix 1 BAG IVPB SCH (11:00)
[2023-05-04] MEDS ORDERED: Magnesium 2 GM/50 ML BAG (IN WATER) ONE (11:07)
[2023-05-04] MEDS ORDERED: VANCOMYCIN 1.25 GM/250 ML BAG 1.25 GM in Premix 1 BAG IVPB SCH (11:45)
[2023-05-04] MEDS: Lactated Ringer's 1,000 ML IV SCH ×2 (13:30→21:29)
[2023-05-04] MEDS: dilTIAZem 30 MG TAB PO SCH ×2 (15:32→21:31)
[2023-05-04 16:32] LABS: Anion Gap 15 mmol/L (10-20); BUN (Urea Nitrogen) 33 mg/dL (8.4-25.7); Calc. Creatinine Clearance 38 mL/min (70-130); Calcium 8.4 mg/dL (7.8-10.44); Carbon Dioxide 14 mmol/L (23-31); Chloride 115 mmol/L (98-107); Estimated GFR 41; Glucose 95 mg/dL (83-110); Potassium 4.6 mmol/L (3.5-5.1); Sodium 139 mmol/L (136-145)
[2023-05-04] MEDS ORDERED: Apixaban 5 MG TAB PO SCH (21:00)
[2023-05-04] MEDS ORDERED: Sodium Bicarbonate Tab 325 MG TAB PO SCH (21:00)
[2023-05-04] MEDS: Acetaminophen 325 MG TAB PO PRN (21:30)
[2023-05-04] MEDS: Apixaban 2.5 MG TAB PO SCH (21:31)
[2023-05-04] MEDS: Saccharomyces boulardii 250 MG CAP PO SCH (21:31)
[2023-05-04] MEDS: Multivit, Therapeutic 1 TAB PO SCH (21:32)
[2023-05-04] MEDS: Cyanocobalamin (Vitamin B-12) 1,000 MCG TAB PO SCH (21:32)
[2023-05-05] MEDS ORDERED: Cefepime 1 GM in Sodium Chloride 0.9% 100 ML IVPB SCH (01:00)
[2023-05-05 03:57] LABS: #Eosinphils 0.3 10x3/uL (0.0-0.5); #Monocytes 0.6 10x3/uL (0.0-1.1); #Neutrophils 4.8 10x3/uL (1.5-8.4); %Basophils 0.3 % (0.0-2.0); %Eosinophils 3.9 % (0.0-6.0); %Lymphocytes 15.7 % (18.0-47.0); %Monocytes 9.2 % (0.0-10.0); %Neutrophils 70.8 % (40.0-75.0); Hemoglobin 10.1 g/dL (13.5-17.5); Mean Corpuscular HGB CONC 32.6 g/dL (32.0-36.0); Mean Corpuscular Hemoglobin 28.7 pg (27.0-33.0); Mean Corpuscular Volume 88.1 fl (81.2-95.1); Mean Platelet Volume 9.1 fl (7.4-10.4); Platelet Count 184 10x3/uL (150-450); RBC Distribution Width 13.2 % (11.5-14.5); Red Blood Cell (RBC) Count 3.52 10x6/uL (4.32-5.72); White Blood Cell (WBC) Count 6.8 10x3/uL (3.5-10.5)
[2023-05-05 04:22] LABS: ALT (SGPT) 18 U/L (8-55); AST (SGOT) 28 U/L (5-34); Albumin 2.4 g/dL (3.4-4.8); Alkaline Phosphatase 83 U/L (40-110); Anion Gap 12 mmol/L (10-20); BUN (Urea Nitrogen) 31 mg/dL (8.4-25.7); Bilirubin, Total 0.3 mg/dL (0.2-1.2); Calc. Creatinine Clearance 41 mL/min (70-130); Calcium 8.1 mg/dL (7.8-10.44); Carbon Dioxide 13 mmol/L (23-31); Chloride 116 mmol/L (98-107); Estimated GFR 45; Globulin 3.4 g/dL (2.4-3.5); Glucose 99 mg/dL (83-110); Magnesium 2.1 mg/dL (1.6-2.6); Phosphorus 2.6 mg/dL (2.3-4.7); Potassium 3.7 mmol/L (3.5-5.1); Protein, Total 5.8 g/dL (5.8-8.1); Sodium 137 mmol/L (136-145)
[2023-05-05] MEDS: Lactated Ringer's 1,000 ML IV SCH ×3 (06:15→20:25)
[2023-05-05] MEDS: dilTIAZem 30 MG TAB PO SCH ×3 (09:24→20:20)
[2023-05-05] MEDS: Potassium Bicarbonate/Cit Ac 20 MEQ TAB PO SCH ×2 (09:24→16:59)
[2023-05-05] MEDS: Sodium Bicarbonate Tab 325 MG TAB PO SCH ×3 (09:24→20:19)
[2023-05-05] MEDS: Apixaban 2.5 MG TAB PO SCH ×2 (09:24→20:19)
[2023-05-05] MEDS ORDERED: Vancomycin 1 GM in Sodium Chloride 0.9% 250 ML 250 ML IVPB SCH (12:00)
[2023-05-05] MEDS: Acetaminophen 325 MG TAB PO PRN (14:08)
[2023-05-05] MEDS: Cefepime 1 GM in Sodium Chloride 0.9% 100 ML IVPB SCH (14:08)
[2023-05-05] MEDS: Cyanocobalamin (Vitamin B-12) 1,000 MCG TAB PO SCH (20:19)
[2023-05-05] MEDS: Saccharomyces boulardii 250 MG CAP PO SCH (20:19)
[2023-05-05] MEDS: Multivit, Therapeutic 1 TAB PO SCH (20:19)
[2023-05-05] MEDS ORDERED: Sodium Bicarbonate Tab 325 MG TAB PO SCH (21:00)
[2023-05-06] MEDS: Cefepime 1 GM in Sodium Chloride 0.9% 100 ML IVPB SCH ×2 (02:02→16:32)
[2023-05-06 03:48] LABS: Anion Gap 12 mmol/L (10-20); BUN (Urea Nitrogen) 27 mg/dL (8.4-25.7); Calc. Creatinine Clearance 43 mL/min (70-130); Calcium 8.7 mg/dL (7.8-10.44); Carbon Dioxide 16 mmol/L (23-31); Chloride 113 mmol/L (98-107); Estimated GFR 48; Glucose 87 mg/dL (83-110); Potassium 4.2 mmol/L (3.5-5.1); Sodium 137 mmol/L (136-145)
[2023-05-06 04:37] LABS: #Eosinphils 0.3 10x3/uL (0.0-0.5); #Monocytes 0.7 10x3/uL (0.0-1.1); #Neutrophils 6.8 10x3/uL (1.5-8.4); %Basophils 0.3 % (0.0-2.0); %Eosinophils 2.7 % (0.0-6.0); %Lymphocytes 17.1 % (18.0-47.0); %Monocytes 7.2 % (0.0-10.0); %Neutrophils 72.2 % (40.0-75.0); Hemoglobin 10.5 g/dL (13.5-17.5); Mean Corpuscular HGB CONC 31.8 g/dL (32.0-36.0); Mean Corpuscular Hemoglobin 27.9 pg (27.0-33.0); Mean Corpuscular Volume 87.5 fl (81.2-95.1); Platelet Count 210 10x3/uL (150-450); RBC Distribution Width 13.5 % (11.5-14.5); Red Blood Cell (RBC) Count 3.77 10x6/uL (4.32-5.72); White Blood Cell (WBC) Count 9.4 10x3/uL (3.5-10.5)
[2023-05-06] MEDS: Apixaban 2.5 MG TAB PO SCH ×2 (08:57→21:13)
[2023-05-06] MEDS: Potassium Bicarbonate/Cit Ac 20 MEQ TAB PO SCH (08:57)
[2023-05-06] MEDS: Sodium Bicarbonate Tab 325 MG TAB PO SCH ×3 (08:57→21:11)
[2023-05-06] MEDS: Acetaminophen 325 MG TAB PO PRN (08:57)
[2023-05-06] MEDS: dilTIAZem 30 MG TAB PO SCH ×3 (08:58→21:12)
[2023-05-06] MEDS: Lactated Ringer's 1,000 ML IV SCH (16:32)
[2023-05-06] MEDS: Saccharomyces boulardii 250 MG CAP PO SCH (21:12)
[2023-05-06] MEDS: Multivit, Therapeutic 1 TAB PO SCH (21:13)
[2023-05-06] MEDS: Cyanocobalamin (Vitamin B-12) 1,000 MCG TAB PO SCH (21:13)
[2023-05-07] MEDS: Cefepime 1 GM in Sodium Chloride 0.9% 100 ML IVPB SCH ×2 (01:05→15:00)
[2023-05-07 03:27] LABS: #Eosinphils 0.4 10x3/uL (0.0-0.5); #Monocytes 0.5 10x3/uL (0.0-1.1); #Neutrophils 6.8 10x3/uL (1.5-8.4); %Basophils 0.2 % (0.0-2.0); %Eosinophils 4.4 % (0.0-6.0); %Lymphocytes 15.8 % (18.0-47.0); %Monocytes 5.7 % (0.0-10.0); %Neutrophils 73.4 % (40.0-75.0); Hematocrit 32.3 % (38.8-50.0); Hemoglobin 10.4 g/dL (13.5-17.5); Mean Corpuscular HGB CONC 32.2 g/dL (32.0-36.0); Mean Corpuscular Volume 87.1 fl (81.2-95.1); Platelet Count 199 10x3/uL (150-450); RBC Distribution Width 13.2 % (11.5-14.5); Red Blood Cell (RBC) Count 3.71 10x6/uL (4.32-5.72); White Blood Cell (WBC) Count 9.2 10x3/uL (3.5-10.5)
[2023-05-07 03:44] LABS: Anion Gap 13 mmol/L (10-20); BUN (Urea Nitrogen) 28 mg/dL (8.4-25.7); Calc. Creatinine Clearance 47 mL/min (70-130); Calcium 8.9 mg/dL (7.8-10.44); Carbon Dioxide 19 mmol/L (23-31); Chloride 110 mmol/L (98-107); Estimated GFR 54; Glucose 97 mg/dL (83-110); Potassium 3.9 mmol/L (3.5-5.1); Sodium 138 mmol/L (136-145)
[2023-05-07] MEDS: Digoxin 0.5 MG/2 ML AMP SLOW IVP SCH ×2 (03:52→05:53)
[2023-05-07] MEDS: Lactated Ringer's 1,000 ML IV SCH (03:52)
[2023-05-07] MEDS: Apixaban 2.5 MG TAB PO SCH ×2 (10:20→20:54)
[2023-05-07] MEDS: Metoprolol Tartrate 25 MG TAB PO SCH ×3 (10:20→20:53)
[2023-05-07] MEDS: Sodium Bicarbonate Tab 325 MG TAB PO SCH (10:20)
[2023-05-07] MEDS ORDERED: Meropenem 1 GM in Sodium Chloride 0.9% 100 ML IVPB SCH (17:00)
[2023-05-07] MEDS: Multivit, Therapeutic 1 TAB PO SCH (20:54)
[2023-05-07] MEDS: Saccharomyces boulardii 250 MG CAP PO SCH (20:54)
[2023-05-07] MEDS: Cyanocobalamin (Vitamin B-12) 1,000 MCG TAB PO SCH (20:54)
[2023-05-07] MEDS ORDERED: Aztreonam 1 GM in Sodium Chloride 0.9% 100 ML IVPB SCH (21:00)
[2023-05-08] MEDS: Meropenem 1 GM in Sodium Chloride 0.9% 100 ML IVPB SCH ×2 (00:33→13:57)
[2023-05-08 04:04] LABS: Anion Gap 11 mmol/L (10-20); BUN (Urea Nitrogen) 32 mg/dL (8.4-25.7); Calc. Creatinine Clearance 46 mL/min (70-130); Calcium 8.9 mg/dL (7.8-10.44); Carbon Dioxide 22 mmol/L (23-31); Chloride 106 mmol/L (98-107); Estimated GFR 52; Glucose 85 mg/dL (83-110); Potassium 3.9 mmol/L (3.5-5.1); Sodium 135 mmol/L (136-145)
[2023-05-08 04:14] LABS: #Eosinphils 0.6 10x3/uL (0.0-0.5); #Monocytes 0.7 10x3/uL (0.0-1.1); #Neutrophils 7.9 10x3/uL (1.5-8.4); %Basophils 0.4 % (0.0-2.0); %Lymphocytes 16.2 % (18.0-47.0); %Monocytes 6.5 % (0.0-10.0); %Neutrophils 71.4 % (40.0-75.0); Hematocrit 32.5 % (38.8-50.0); Hemoglobin 10.5 g/dL (13.5-17.5); Mean Corpuscular HGB CONC 32.3 g/dL (32.0-36.0); Mean Corpuscular Hemoglobin 28.7 pg (27.0-33.0); Mean Corpuscular Volume 88.8 fl (81.2-95.1); Mean Platelet Volume 9.5 fl (7.4-10.4); Platelet Count 210 10x3/uL (150-450); RBC Distribution Width 13.1 % (11.5-14.5); Red Blood Cell (RBC) Count 3.66 10x6/uL (4.32-5.72); White Blood Cell (WBC) Count 11.1 10x3/uL (3.5-10.5)
[2023-05-08] MEDS: Apixaban 2.5 MG TAB PO SCH ×2 (08:24→20:51)
[2023-05-08] MEDS: Metoprolol Tartrate 25 MG TAB PO SCH ×3 (08:24→20:51)
[2023-05-08] MEDS: Cyanocobalamin (Vitamin B-12) 1,000 MCG TAB PO SCH (20:51)
[2023-05-08] MEDS: Multivit, Therapeutic 1 TAB PO SCH (20:51)
[2023-05-08] MEDS: Saccharomyces boulardii 250 MG CAP PO SCH (20:51)
[2023-05-09] MEDS: Meropenem 1 GM in Sodium Chloride 0.9% 100 ML IVPB SCH ×2 (00:46→13:00)
[2023-05-09 05:17] LABS: #Eosinphils 0.4 10x3/uL (0.0-0.5); #Monocytes 0.7 10x3/uL (0.0-1.1); #Neutrophils 5.4 10x3/uL (1.5-8.4); %Basophils 0.5 % (0.0-2.0); %Eosinophils 5.5 % (0.0-6.0); %Lymphocytes 17.3 % (18.0-47.0); %Monocytes 8.4 % (0.0-10.0); %Neutrophils 67.8 % (40.0-75.0); Hematocrit 33.3 % (38.8-50.0); Hemoglobin 10.9 g/dL (13.5-17.5); Mean Corpuscular HGB CONC 32.7 g/dL (32.0-36.0); Mean Corpuscular Hemoglobin 28.7 pg (27.0-33.0); Mean Corpuscular Volume 87.6 fl (81.2-95.1); Mean Platelet Volume 8.8 fl (7.4-10.4); Platelet Count 223 10x3/uL (150-450)
[2023-05-09 05:20] LABS: Anion Gap 13 mmol/L (10-20); BUN (Urea Nitrogen) 35 mg/dL (8.4-25.7); Calc. Creatinine Clearance 43 mL/min (70-130); Calcium 9.2 mg/dL (7.8-10.44); Carbon Dioxide 23 mmol/L (23-31); Chloride 105 mmol/L (98-107); Estimated GFR 48; Glucose 112 mg/dL (83-110); Sodium 137 mmol/L (136-145)
[2023-05-09] MEDS: Apixaban 2.5 MG TAB PO SCH ×2 (09:00→22:19)
[2023-05-09] MEDS: Metoprolol Tartrate 25 MG TAB PO SCH ×3 (09:01→22:19)
[2023-05-09] MEDS: Acetaminophen 325 MG TAB PO PRN (13:05)
[2023-05-09] MEDS: Cyanocobalamin (Vitamin B-12) 1,000 MCG TAB PO SCH (22:19)
[2023-05-09] MEDS: Multivit, Therapeutic 1 TAB PO SCH (22:19)
[2023-05-09] MEDS: Saccharomyces boulardii 250 MG CAP PO SCH (22:19)
[2023-05-10] MEDS: Meropenem 1 GM in Sodium Chloride 0.9% 100 ML IVPB SCH (01:05)
[2023-05-10] MEDS: Metoprolol Tartrate 25 MG TAB PO SCH (08:46)
[2023-05-10] MEDS: Apixaban 2.5 MG TAB PO SCH (08:47)
[2023-05-10] MEDS ORDERED: Mag-Al 1200 mg/1200 mg/30 ML UDCUP PO PRN (10:20)
[2023-05-10 13:13] VITALS: BP 103/58; TEMP 97.8
== END 2023-05-10 14:36 | disposition home or self-care (01) | DRG 698 ==
LOC: CSHERS 17:43 → CSHERHOLD 22:47 → CSHTELE 05-04 16:59
PROVIDERS: ADMIT Family Medicine; ATTEND Hospitalist
DX: T83.511A Infection and inflammatory reaction due to indwelling urethral catheter, initial encounter (principal); A41.59 Other Gram-negative sepsis; R65.20 Severe sepsis without septic shock; N13.6 Pyonephrosis; N17.9 Acute kidney failure, unspecified; E87.20 Acidosis, unspecified; E87.1 Hypo-osmolality and hyponatremia; E44.0 Moderate protein-calorie malnutrition; I48.0 Paroxysmal atrial fibrillation; R31.9 Hematuria, unspecified; N31.9 Neuromuscular dysfunction of bladder, unspecified; N18.30 Chronic kidney disease, stage 3 unspecified; E86.0 Dehydration; E87.6 Hypokalemia; E83.42 Hypomagnesemia; K40.90 Unilateral inguinal hernia, without obstruction or gangrene, not specified as recurrent; N28.1 Cyst of kidney, acquired; I12.9 Hypertensive chronic kidney disease with stage 1 through stage 4 chronic kidney disease, or unspecified chronic kidney disease; Z86.711 Personal history of pulmonary embolism; Z79.01 Long term (current) use of anticoagulants; Z87.891 Personal history of nicotine dependence; Z88.5 Allergy status to narcotic agent; Z88.2 Allergy status to sulfonamides; Z86.718 Personal history of other venous thrombosis and embolism; Z99.3 Dependence on wheelchair; Z98.890 Other specified postprocedural states; Z68.25 Body mass index [BMI] 25.0-25.9, adult
CPT/HCPCS: 36415; 71045; 74176; 76770; 80048; 80053; 81001; 82805; 83605; 83735; 84100; 85025; 87040; 87077; 87086; 87186; 93005; 93010; 93306; J0692; J0696; J1160; J2185; J3370; J3475; J3490; J7050; J7120